=== PATIENT | male | born 1950 | race Caucasian/White ===

== ENCOUNTER 2021-03-22 06:04 | Day surgery (SDC) | payer OTHER, MEDICARE | END 2021-03-22 23:43 | disposition home or self-care (01) | LOC: WOUND 06:04 | DX: L89.893 Pressure ulcer of other site, stage 3 (principal); I73.9 Peripheral vascular disease, unspecified; I51.9 Heart disease, unspecified | CPT/HCPCS: G0463 ==

== ENCOUNTER 2021-04-01 03:28 | Day surgery (SDC) | payer OTHER, MEDICARE | END 2021-04-01 23:30 | disposition home or self-care (01) | LOC: WOUND | DX: S91.101A Unspecified open wound of right great toe without damage to nail, initial encounter (principal); X58.XXXA Exposure to other specified factors, initial encounter; I73.9 Peripheral vascular disease, unspecified | CPT/HCPCS: A9270 ==

== ENCOUNTER 2021-04-08 03:27 | Day surgery (SDC) | payer OTHER, MEDICARE | END 2021-04-08 23:35 | disposition home or self-care (01) | LOC: WOUND 03:27 | DX: L97.512 Non-pressure chronic ulcer of other part of right foot with fat layer exposed (principal); I73.9 Peripheral vascular disease, unspecified; S91.101A Unspecified open wound of right great toe without damage to nail, initial encounter; X58.XXXA Exposure to other specified factors, initial encounter | CPT/HCPCS: A9270; G0463 ==

== ENCOUNTER 2021-04-15 03:15 | Day surgery (SDC) | payer OTHER, MEDICARE | END 2021-04-15 23:27 | disposition home or self-care (01) | LOC: WOUND 03:15 | DX: L97.512 Non-pressure chronic ulcer of other part of right foot with fat layer exposed (principal); I73.9 Peripheral vascular disease, unspecified; S91.101A Unspecified open wound of right great toe without damage to nail, initial encounter; I51.9 Heart disease, unspecified ==

== ENCOUNTER 2021-04-22 02:38 | Day surgery (SDC) | payer OTHER, MEDICARE | END 2021-04-22 23:17 | disposition home or self-care (01) | LOC: WOUND 02:38 | DX: S91.101A Unspecified open wound of right great toe without damage to nail, initial encounter (principal); L97.512 Non-pressure chronic ulcer of other part of right foot with fat layer exposed; I73.9 Peripheral vascular disease, unspecified; X58.XXXA Exposure to other specified factors, initial encounter | CPT/HCPCS: A9270 ==

== ENCOUNTER 2021-04-29 01:45 | Day surgery (SDC) | payer OTHER, MEDICARE | END 2021-04-29 23:30 | disposition home or self-care (01) | LOC: WOUND 01:45 | DX: L97.512 Non-pressure chronic ulcer of other part of right foot with fat layer exposed (principal); S91.101A Unspecified open wound of right great toe without damage to nail, initial encounter; X58.XXXA Exposure to other specified factors, initial encounter; I73.9 Peripheral vascular disease, unspecified | CPT/HCPCS: A9270; G0463 ==

== ENCOUNTER 2021-05-06 03:17 | Day surgery (SDC) | payer OTHER, MEDICARE | END 2021-05-06 23:37 | disposition home or self-care (01) | LOC: WOUND 03:17 | DX: L97.512 Non-pressure chronic ulcer of other part of right foot with fat layer exposed (principal); E11.51 Type 2 diabetes mellitus with diabetic peripheral angiopathy without gangrene; S91.101D Unspecified open wound of right great toe without damage to nail, subsequent encounter | CPT/HCPCS: A9270 ==

== ENCOUNTER 2021-05-13 05:58 | Day surgery (SDC) | payer OTHER, MEDICARE | END 2021-05-13 23:29 | disposition home or self-care (01) | LOC: WOUND 05:58 | DX: L97.512 Non-pressure chronic ulcer of other part of right foot with fat layer exposed (principal); I73.9 Peripheral vascular disease, unspecified | CPT/HCPCS: A9270; G0463 ==

== ENCOUNTER 2021-05-20 02:31 | Day surgery (SDC) | payer OTHER, MEDICARE | END 2021-05-20 22:44 | disposition home or self-care (01) | LOC: WOUND 02:31 | DX: L97.512 Non-pressure chronic ulcer of other part of right foot with fat layer exposed (principal); I73.9 Peripheral vascular disease, unspecified; S91.101D Unspecified open wound of right great toe without damage to nail, subsequent encounter | CPT/HCPCS: A9270 ==

== ENCOUNTER 2021-05-27 01:37 | Day surgery (SDC) | payer OTHER, MEDICARE | END 2021-05-27 23:38 | disposition home or self-care (01) | LOC: WOUND 01:37 | DX: S91.101A Unspecified open wound of right great toe without damage to nail, initial encounter (principal); L97.512 Non-pressure chronic ulcer of other part of right foot with fat layer exposed; I73.9 Peripheral vascular disease, unspecified | CPT/HCPCS: A9270; G0463 ==

== ENCOUNTER 2021-06-03 02:36 | Day surgery (SDC) | payer OTHER, MEDICARE | END 2021-06-03 23:28 | disposition home or self-care (01) | LOC: WOUND 02:36 | DX: S91.101D Unspecified open wound of right great toe without damage to nail, subsequent encounter (principal); L97.512 Non-pressure chronic ulcer of other part of right foot with fat layer exposed; I73.9 Peripheral vascular disease, unspecified; X58.XXXD Exposure to other specified factors, subsequent encounter | CPT/HCPCS: A9270; G0463 ==

== ENCOUNTER 2021-06-17 08:00 | Day surgery (SDC) | payer OTHER, MEDICARE | END 2021-06-17 23:59 | disposition home or self-care (01) | LOC: WOUND 08:00 | DX: S91.101A Unspecified open wound of right great toe without damage to nail, initial encounter (principal); I73.9 Peripheral vascular disease, unspecified | CPT/HCPCS: G0463 ==

== ENCOUNTER 2021-07-01 01:18 | Day surgery (SDC) | payer OTHER, MEDICARE | END 2021-07-01 23:07 | disposition home or self-care (01) | LOC: WOUND 01:18 | DX: L97.512 Non-pressure chronic ulcer of other part of right foot with fat layer exposed (principal); I73.9 Peripheral vascular disease, unspecified; S91.101D Unspecified open wound of right great toe without damage to nail, subsequent encounter; X58.XXXD Exposure to other specified factors, subsequent encounter | CPT/HCPCS: G0463 ==

== ENCOUNTER 2021-07-17 01:48 | Day surgery (SDC) | payer OTHER, MEDICARE | END 2021-07-17 23:59 | disposition home or self-care (01) | LOC: WOUND 01:48 | DX: L97.512 Non-pressure chronic ulcer of other part of right foot with fat layer exposed (principal); I73.9 Peripheral vascular disease, unspecified; S91.101D Unspecified open wound of right great toe without damage to nail, subsequent encounter; X58.XXXD Exposure to other specified factors, subsequent encounter | CPT/HCPCS: G0463 ==

== ENCOUNTER 2021-07-29 03:20 | Day surgery (SDC) | payer OTHER, MEDICARE | END 2021-07-29 23:26 | disposition home or self-care (01) | LOC: WOUND 03:20 | DX: L97.512 Non-pressure chronic ulcer of other part of right foot with fat layer exposed (principal); I73.9 Peripheral vascular disease, unspecified; S91.101D Unspecified open wound of right great toe without damage to nail, subsequent encounter | CPT/HCPCS: G0463 ==

== ENCOUNTER 2021-08-12 01:25 | Day surgery (SDC) | payer OTHER, MEDICARE | END 2021-08-12 23:26 | disposition home or self-care (01) | LOC: WOUND 01:25 | DX: L97.512 Non-pressure chronic ulcer of other part of right foot with fat layer exposed (principal); I73.9 Peripheral vascular disease, unspecified; S91.101D Unspecified open wound of right great toe without damage to nail, subsequent encounter; X58.XXXD Exposure to other specified factors, subsequent encounter | CPT/HCPCS: G0463 ==

== ENCOUNTER 2022-01-28 16:01 | Emergency (ER) | payer OTHER, MEDICARE ==
[~2022-01-28] VITALS: Ht 170.2 cm; Wt 77.1 kg
[2022-01-28 17:54] LABS: Influenza B, PCR NEGATIVE (NEGATIVE); Resp Syncytial Virus, PCR NEGATIVE (NEGATIVE); SARS-Cov-2 (COVID-19) PCR, MMC NEGATIVE (NEGATIVE)
[2022-01-28 18:00] LABS: Influenza A, PCR POSITIVE (NEGATIVE)
[2022-01-28 20:53] LABS: BASOPHILS ABSOLUTE AUTO 0.01 K/mm3 (0.00-0.23); BASOPHILS PERCENT AUTO 0 % (0-2); EOSINOPHILS PERCENT AUTO 0 % (0-6); Hematocrit 33.9 % (37.0-53.0); Hemoglobin 11.6 g/dL (13.5-17.5); IMMATURE GRAN ABSOLUTE AUTO 0.04 K/mm3 (0.00-0.10); IMMATURE GRAN PERCENT AUTO 1 % (0-1); LYMPHOCYTES PERCENT AUTO 8 % (21-46); MONOCYTES ABSOLUTE AUTO 0.98 K/mm3 (0.16-1.47); MONOCYTES PERCENT AUTO 12 % (4-13); Mean Corpuscular HGB 28.9 pg (26.0-34.0); Mean Corpuscular HGB Conc 34.2 g/dL (31.5-36.5); Mean Corpuscular Volume 85 fL (80-100); NEUTROPHILS ABSOLUTE AUTO 6.67 K/mm3 (1.96-9.15); NEUTROPHILS PERCENT AUTO 79 % (41-73); Platelet Count 108 K/mm3 (150-400); RDW Coefficient Variation 12.1 % (11.7-14.2); RDW Standard Deviation 37.3 fL (35.1-46.3); Red Blood Cell Count 4.01 M/mm3 (4.30-5.90)
[2022-01-28 21:09] LABS: Albumin, Blood 2.8 g/dL (3.4-5.0); Albumin/Globulin Ratio 0.7 (0.8-1.8); Bilirubin, Total 1.6 mg/dL (0.1-1.0); Bun/Creatinine Ratio 20.9 (12.0-20.0); Creatinine, Blood 1.15 mg/dL (0.60-1.20); Globulin, Blood 4.3 g/dL (2.2-4.0); Potassium, Blood 4.3 mmol/L (3.5-5.5); Total Protein, Blood 7.1 g/dL (6.4-8.2)
[2022-01-28] MEDS ORDERED: OSEL75CA PO (21:44)
[2022-01-28] MEDS ORDERED: LEVO750 PO (21:44)
[2022-01-28] MEDS ORDERED: FURO20 PO (21:44)
== END 2022-01-28 22:57 | disposition home or self-care (01) ==
LOC: ER 16:01
PROVIDERS: Physician Assistant; Student in an Organized Health Care Education/Training Program
DX: J10.1 Influenza due to other identified influenza virus with other respiratory manifestations (principal); J90 Pleural effusion, not elsewhere classified; Z20.822 Contact with and (suspected) exposure to COVID-19
CPT/HCPCS: 0241U; 71046; 80053; 83880; 85025; A9270; J1940; J1956

== ENCOUNTER 2022-02-25 15:32 | Inpatient (IN) | payer OTHER, MEDICARE ==
[~2022-02-25] VITALS: Ht 167.6 cm; Wt 69.8 kg
[~2022-02-25 15:32] MED LIST: FURO20 PO; LEVO750 PO; OSEL75CA PO
[2022-02-25 16:35] LABS: BASOPHILS ABSOLUTE AUTO 0.01 K/mm3 (0.00-0.23); BASOPHILS PERCENT AUTO 0 % (0-2); EOSINOPHILS ABSOLUTE AUTO 0.06 K/mm3 (0.00-0.68); EOSINOPHILS PERCENT AUTO 2 % (0-6); Hematocrit 40.1 % (37.0-53.0); Hemoglobin 13.3 g/dL (13.5-17.5); IMMATURE GRAN PERCENT AUTO 0 % (0-1); LYMPHOCYTES ABSOLUTE AUTO 0.87 K/mm3 (0.84-5.20); LYMPHOCYTES PERCENT AUTO 22 % (21-46); MONOCYTES ABSOLUTE AUTO 0.52 K/mm3 (0.16-1.47); MONOCYTES PERCENT AUTO 13 % (4-13); Mean Corpuscular HGB 28.5 pg (26.0-34.0); Mean Corpuscular HGB Conc 33.2 g/dL (31.5-36.5); Mean Corpuscular Volume 86 fL (80-100); NEUTROPHILS ABSOLUTE AUTO 2.53 K/mm3 (1.96-9.15); NEUTROPHILS PERCENT AUTO 63 % (41-73); Platelet Count 102 K/mm3 (150-400); RDW Coefficient Variation 13.3 % (11.7-14.2); RDW Standard Deviation 41.1 fL (35.1-46.3); Red Blood Cell Count 4.67 M/mm3 (4.30-5.90); White Blood Cell Count 3.99 K/mm3 (4.00-11.30)
[2022-02-25 17:10] LABS: Albumin, Blood 3.1 g/dL (3.4-5.0); Albumin/Globulin Ratio 0.8 (0.8-1.8); Bun/Creatinine Ratio 15.6 (12.0-20.0); Calcium, Blood 9.1 mg/dL (8.5-10.1); Creatinine, Blood 1.09 mg/dL (0.60-1.20); Globulin, Blood 4.1 g/dL (2.2-4.0); Potassium, Blood 4.1 mmol/L (3.5-5.5); Total Protein, Blood 7.2 g/dL (6.4-8.2)
[2022-02-25 21:24] LABS: Influenza A, PCR NEGATIVE (NEGATIVE); Influenza B, PCR NEGATIVE (NEGATIVE); Resp Syncytial Virus, PCR NEGATIVE (NEGATIVE); SARS-Cov-2 (COVID-19) PCR, MMC NEGATIVE (NEGATIVE)
[2022-02-26 06:45] LABS: BASOPHILS ABSOLUTE AUTO 0.02 K/mm3 (0.00-0.23); BASOPHILS PERCENT AUTO 1 % (0-2); EOSINOPHILS ABSOLUTE AUTO 0.06 K/mm3 (0.00-0.68); EOSINOPHILS PERCENT AUTO 2 % (0-6); Hematocrit 35.9 % (37.0-53.0); Hemoglobin 12.3 g/dL (13.5-17.5); IMMATURE GRAN ABSOLUTE AUTO 0.01 K/mm3 (0.00-0.10); IMMATURE GRAN PERCENT AUTO 0 % (0-1); LYMPHOCYTES ABSOLUTE AUTO 0.78 K/mm3 (0.84-5.20); LYMPHOCYTES PERCENT AUTO 20 % (21-46); MONOCYTES PERCENT AUTO 18 % (4-13); Mean Corpuscular HGB 29.1 pg (26.0-34.0); Mean Corpuscular HGB Conc 34.3 g/dL (31.5-36.5); Mean Corpuscular Volume 85 fL (80-100); Mean Platelet Volume 10.6 fL (9.1-12.4); NEUTROPHILS ABSOLUTE AUTO 2.31 K/mm3 (1.96-9.15); NEUTROPHILS PERCENT AUTO 60 % (41-73); Platelet Count 105 K/mm3 (150-400); RDW Coefficient Variation 13.3 % (11.7-14.2); RDW Standard Deviation 41.1 fL (35.1-46.3); Red Blood Cell Count 4.23 M/mm3 (4.30-5.90); White Blood Cell Count 3.88 K/mm3 (4.00-11.30)
--- NOTE | 2022-02-26 06:46 | NUR ---
A/OX4; CALM, PLEASANT, COOPERATIVE. DECLINED DESK INTERVIEWER SERVICES; THIS RN ENCOURAGED PATIENT AND SPOUSE TO REQUEST DESK INTERVIEWER IF ANY CLARIFICATION IS NEEDED.
[2022-02-26 07:08] LABS: Bun/Creatinine Ratio 13.7 (12.0-20.0); Calcium, Blood 8.8 mg/dL (8.5-10.1); Creatinine, Blood 1.17 mg/dL (0.60-1.20); Potassium, Blood 3.9 mmol/L (3.5-5.5)
--- NOTE | 2022-02-26 17:40 | NUR ---
SHIFT SUMMARY PATIENT DENIES PAIN, NAUSEA, AND SHORTNESS OF BREATH. PATIENT IS IND IN ROOM. PATIENT HAD AT BEDSIDE ALL SHIFT. STRESS TEST ORDERED THIS AFTERNOON, PATIENT NPO. FIRST PART COMPLETED TODAY, 02/26. PATIENT TO BE NPO AT MIDNIGHT AND NO CAFFIENE AT 8PM TO FINISH STRESS TEST TOMORROW, 02/27. PATIENT AWARE AND STATED UNDERSTANDING. PATIENT IV, DIFFICULT FLUSH. CHARGE NURSE INFORMED AFTER CURRENT IV HAD TO BE PLACED VIA ULTRASOUND LAST NIGHT. PATIENT IS EATING AND DRINKING WELL. PATIENT IS VERY PLEASANT AND COOPERATIVE WITH CARE.
--- NOTE | 2022-02-26 22:19 | NUR ---
2146 PT LYING IN BED, REPORTS A LITTLE SOB WHILE SLEEPING, ON RA AT 97%. 2-3+ PITTING EDEMA IN LE'S. TELE NSR SR/ST BBB AT 77. PT'S IV IS POSITIONAL BUT FLUSHES WELL, PLACED NEW DRESSING ON IV AND REPOSITIONED IT SLIGHTLY, APPEARS TO BE LESS POSITIONAL AND STILL FLUSHING WELL. WILL CONT. TO MONITOR. NO OTHER APPARENT SIGNS OF DISTRESS. CALL LIGHT IS IN REACH. IS IN ROOM.
--- NOTE | 2022-02-27 04:06 | NUR ---
0000 PT LYING IN BED, AWAKE, PT REPORTS SLIGHT NAUSEA BUT DOES NOT FEEL LIKE HE NEEDS MEDS FOR IT AT THIS POINT. WILL SPEAK WITH DR DURING THE NEXT CALL TO GET NAUSEA MEDS ORDRED IN CASE HE DOES FEEL LIKE HE NEEDS THEM. NO OTHER APPARENT SIGNS OF DISTRESS. CALL LIGHT IS IN REACH. IS IN ROOM.
--- NOTE | 2022-02-27 04:07 | NUR ---
0200 PT LYING IN BED, EYES CLOSED, APPEARS TO BE RESTING. BREATHING IS EVEN, UNLABORED. NO APPARENT SIGNS OF DISTRESS. CALL LIGHT IS IN REACH. IS IN ROOM.
--- NOTE | 2022-02-27 04:08 | NUR ---
PT IS AAO X 4, REPORTS A LITTLE SOB WHEN SLEEPING. ON RA AT 97%. REPORTED A LITTLE NAUSEA, DID NOT WANT MEDS AT THE TIME BUT THERE IS NOW ZOFRAN ORDERED IF HE DOES NEED IT. TELE NSR WITH BBB AND HX OF PVC'S. 2-3+ EDEMA IN LE'S. TO HAVE 2ND STRESS TEST THIS AM.
--- NOTE | 2022-02-27 05:47 | NUR ---
PT LYING IN BED, EYES CLOSED, APPEARS TO BE RESTING. BREATHING IS EVEN, UNLABORED. NO APPARENT SIGNS OF DISTRESS. CALL LIGHT IS IN REACH. IS IN ROOM. NO OTHER CHANGES THIS SHIFT.
[2022-02-27] MEDS ORDERED: LOSA25 PO (17:02)
[2022-02-27] MEDS ORDERED: METO25 PO (17:02)
[2022-02-27] MEDS ORDERED: CEFD300 PO (17:03)
[2022-02-27] MEDS ORDERED: POTCHL20ER PO (17:03)
[2022-02-27] MEDS ORDERED: FURO40 PO (17:03)
[2022-02-27] MEDS ORDERED: AZIT500 PO (17:03)
--- NOTE | 2022-02-27 17:21 | NUR ---
DISCHARGE: PT D/C WITH VIA ATOMOBILE. AMA FORM SIGNED PER DR. BLEDSOE. PT MADE AWARE OF RISKS AND COMPLICATIONS OF LEAVING EARLY FROM HOSPITAL. PT AND BOTH STATED THEY UNDERSTOOD RISKS INVOLVED. RX MEDICATIONS SENT TO [facility]. IV D/C'D W/O COMPLICATIONS, REDNESS, OR INFLAMMATION. TELE DC'D AND SENT. ALL BELONGINGS SENT WITH PT.
== END 2022-02-27 17:19 | disposition left against medical advice (07) | DRG 871 ==
LOC: ER 15:32 → MEDS 15:33
PROVIDERS: Internal Medicine; Physician Assistant; ADMIT Family Medicine
DX: A41.9 Sepsis, unspecified organism (principal); I21.4 Non-ST elevation (NSTEMI) myocardial infarction; I50.23 Acute on chronic systolic (congestive) heart failure; J18.9 Pneumonia, unspecified organism; N17.9 Acute kidney failure, unspecified; D61.818 Other pancytopenia; R65.20 Severe sepsis without septic shock; Z20.822 Contact with and (suspected) exposure to COVID-19; I11.0 Hypertensive heart disease with heart failure; Z90.49 Acquired absence of other specified parts of digestive tract; Z79.2 Long term (current) use of antibiotics; Z79.899 Other long term (current) drug therapy; Z23 Encounter for immunization
CPT/HCPCS: 0241U; 36415; 71045; 71046; 71260; 78452; 80048; 80053; 83605; 83880; 84145; 84484; 85025; 85379; 87040; 90686; 93005; 93010; 93017; 93306; 93971; 96365; 96366; 96367; 96372; 96374-59; 96375-59; 96376; 99285-25; A9270; A9500; G0008; G0378; J0280; J0456; J0696; J1650; J1940; J2405; J2785; J7050; Q9967

== ENCOUNTER 2022-04-05 14:50 | Emergency (ER) | payer OTHER, MEDICARE ==
[~2022-04-05] VITALS: Ht 170.2 cm; Wt 81.7 kg
[~2022-04-05 14:50] MED LIST changes: +AZIT500 PO; +CEFD300 PO; +FURO40 PO; +LOSA25 PO; +METO25 PO; +POTCHL20ER PO
[2022-04-05] MEDS ORDERED: Bactrim Ds Tab1 EACH PO (15:25)
== END 2022-04-05 15:42 | disposition home or self-care (01) ==
LOC: ER 14:50
DX: L02.212 Cutaneous abscess of back [any part, except buttock and flank] (principal); Z79.899 Other long term (current) drug therapy
CPT/HCPCS: 10061; 99283-25

== ENCOUNTER 2022-04-06 11:36 | Emergency (ER) | payer OTHER, MEDICARE ==
[~2022-04-06] VITALS: Ht 170.2 cm; Wt 72.6 kg
[~2022-04-06 11:36] MED LIST changes: +Bactrim Ds Tab1 EACH PO
== END 2022-04-06 11:45 | disposition home or self-care (01) ==
LOC: ER 11:36
DX: Z48.00 Encounter for change or removal of nonsurgical wound dressing (principal); Z79.899 Other long term (current) drug therapy
CPT/HCPCS: 99282

== ENCOUNTER 2022-04-07 17:32 | Emergency (ER) | payer OTHER, MEDICARE ==
[~2022-04-07] VITALS: Ht 167.6 cm; Wt 63.5 kg
== END 2022-04-07 17:49 | disposition home or self-care (01) ==
LOC: ER 17:32
DX: Z48.01 Encounter for change or removal of surgical wound dressing (principal); Z79.899 Other long term (current) drug therapy
CPT/HCPCS: 99282

== ENCOUNTER 2022-09-16 12:15 | Inpatient (IN) | payer OTHER, MEDICARE ==
[~2022-09-16] VITALS: Ht 170.2 cm; Wt 68.2 kg
[2022-09-16 13:12] LABS: BASOPHILS ABSOLUTE AUTO 0.01 K/mm3 (0.00-0.23); BASOPHILS PERCENT AUTO 0 % (0-2); EOSINOPHILS PERCENT AUTO 0 % (0-6); Hematocrit 42.9 % (37.0-53.0); Hemoglobin 14.6 g/dL (13.5-17.5); IMMATURE GRAN ABSOLUTE AUTO 0.02 K/mm3 (0.00-0.10); IMMATURE GRAN PERCENT AUTO 0 % (0-1); LYMPHOCYTES ABSOLUTE AUTO 0.55 K/mm3 (0.84-5.20); LYMPHOCYTES PERCENT AUTO 6 % (21-46); MONOCYTES ABSOLUTE AUTO 0.48 K/mm3 (0.16-1.47); MONOCYTES PERCENT AUTO 5 % (4-13); Mean Corpuscular HGB 28.6 pg (26.0-34.0); Mean Corpuscular Volume 84 fL (80-100); Mean Platelet Volume 10.3 fL (9.1-12.4); NEUTROPHILS ABSOLUTE AUTO 7.91 K/mm3 (1.96-9.15); NEUTROPHILS PERCENT AUTO 88 % (41-73); Platelet Count 120 K/mm3 (150-400); RDW Standard Deviation 36.5 fL (35.1-46.3); White Blood Cell Count 8.97 K/mm3 (4.00-11.30)
[2022-09-16 13:28] LABS: Albumin, Blood 3.6 g/dL (3.4-5.0); Albumin/Globulin Ratio 0.8 (0.8-1.8); Bilirubin, Total 0.9 mg/dL (0.1-1.0); Bun/Creatinine Ratio 24.6 (12.0-20.0); Calcium, Blood 9.6 mg/dL (8.5-10.1); Creatinine, Blood 1.67 mg/dL (0.60-1.20); Globulin, Blood 4.8 g/dL (2.2-4.0); Magnesium, Blood 2.7 mg/dL (1.6-2.4); Potassium, Blood 4.6 mmol/L (3.5-5.5); Total Protein, Blood 8.4 g/dL (6.4-8.2)
[2022-09-16] MEDS ORDERED: CARVEDILOL6.25 MG PO (15:32)
[2022-09-16] MEDS ORDERED: ENTRESTO 24 MG1 EAC3 PO (15:33)
[2022-09-16] MEDS ORDERED: ASPIRIN REGIMEN81 MG PO (15:34)
[2022-09-16] MEDS ORDERED: NITROGLYCERIN0.4 M3 SL (15:34)
[2022-09-16] MEDS ORDERED: ROSUVASTATIN CA40 MG PO (15:35)
[2022-09-16] MEDS ORDERED: FARXIGA10 MG PO (15:35)
[2022-09-16 20:45] VITALS: BP 143/89
[2022-09-17] VITALS (7 sets, daily range): BP systolic 104–143; BP diastolic 67–87
[2022-09-17 04:29] LABS: BASOPHILS ABSOLUTE AUTO 0.02 K/mm3 (0.00-0.23); BASOPHILS PERCENT AUTO 0 % (0-2); EOSINOPHILS PERCENT AUTO 0 % (0-6); Hematocrit 38.1 % (37.0-53.0); Hemoglobin 13.4 g/dL (13.5-17.5); IMMATURE GRAN PERCENT AUTO 1 % (0-1); LYMPHOCYTES ABSOLUTE AUTO 0.92 K/mm3 (0.84-5.20); LYMPHOCYTES PERCENT AUTO 9 % (21-46); MONOCYTES ABSOLUTE AUTO 1.19 K/mm3 (0.16-1.47); MONOCYTES PERCENT AUTO 12 % (4-13); Mean Corpuscular HGB 29.3 pg (26.0-34.0); Mean Corpuscular HGB Conc 35.2 g/dL (31.5-36.5); Mean Corpuscular Volume 83 fL (80-100); Mean Platelet Volume 10.5 fL (9.1-12.4); NEUTROPHILS PERCENT AUTO 77 % (41-73); Platelet Count 115 K/mm3 (150-400); RDW Coefficient Variation 12.2 % (11.7-14.2); RDW Standard Deviation 37.2 fL (35.1-46.3); Red Blood Cell Count 4.58 M/mm3 (4.30-5.90); White Blood Cell Count 9.83 K/mm3 (4.00-11.30)
--- NOTE | 2022-09-17 04:29 | NUR ---
PT TO CT FOR REPEATING IMAGING VIA RTALI
--- NOTE | 2022-09-17 04:53 | NUR ---
RETURNED FROM CT
[2022-09-17 04:57] LABS: Bun/Creatinine Ratio 26.3 (12.0-20.0); Calcium, Blood 8.8 mg/dL (8.5-10.1); Creatinine, Blood 1.71 mg/dL (0.60-1.20); Potassium, Blood 3.8 mmol/L (3.5-5.5)
--- NOTE | 2022-09-17 05:28 | NUR ---
SHIFT SUMMARY A/OX3, SOMNOLENT T/O THE SHIFT. AT BEDSIDE. SPO2 >92% ON RA. TELE SR 70-80S, DENIES CHEST PAIN/PRESSURE. Q2 NEURO CHECKS. ABLE TO MOVE ALL EXTREMITIES, GENEARLIZED WEAKNESS. SLOW TO RESPOND. PT RETAINING URINE WITH BLADDER SCAN OF >999 PT REQUESTING TO USE BSC, UP 2P ASSIST WITH GB STAND/PIVOT, ONLY ABLE URINATE 100ML. STRAIGHT CATH WITH OUTPUT OF 850ML. REPEAT CT COMPLETED APPROX 0430. NPO AT THIS TIME. VSS, NO ACUTE CHANGES AT THIS TIME. BED IN LOWEST POSITION WITH CALL LIGHT IN REACH. WILL CONTINUE TO MONITOR AND REPORT TO ONCOMING RN. PT & FAMILY EDUCATED RE: IGNITION SOURCES & RISK OF INJURY WHILE OXYGEN IS IN USE. PT DENIES SMOKING AND PT & FAMILY VERBALIZE UNDERSTANDING.
--- NOTE | 2022-09-17 07:12 | NUR ---
ASSUMED CARE: PT RESTING QUIETLY IN BED, ON RA. TELE SHOWS NSR WITH BBB IN 70S. AT BEDSIDE. NO ACUTE NEEDS OR CONCERNS AT THIS TIME.
--- NOTE | 2022-09-17 08:20 | NUR ---
DR FREY CAME TO BEDSIDE TO SEE PT. AWARE THAT PT HAD DIFFICULTY SWALLOWING MEDS PER NIGHT RN. DR INSTRUCTS TO KEEP PT STRICT NPO UNTIL SPEECH HAS A CHANCE TO EVALUATE. INFORMED DR THAT OUTPT CARDIOLOGY OFFICE IS CLOSED UNTIL 0830 TO OBTAIN RECORDS. NEW EKG COMPLETED AND SHOWN TO DR EDUARDO WHO STATES SHE WILL CONTACT DR RODRIGUEZ. PT'S AT BEDSIDE. NO ACUTE NEEDS AT THIS TIME.
--- NOTE | 2022-09-17 09:31 | NUR ---
BRIDGE MAINTENANCE WORKER AT BEDSIDE. CARDIOLOGY RECORDS HAVE BEEN FAXED AND IN CHART.
--- NOTE | 2022-09-17 10:14 | NUR ---
SPEECH THERAPY AT BEDSIDE AT THIS TIME.
--- NOTE | 2022-09-17 10:28 | NUR ---
AM MEDICATIONS ADMINSTERED WITH SPEECH THERAPY ASSISTANCE.
--- NOTE | 2022-09-17 17:03 | NUR ---
THIRD STRAIGHT CATH COMPLETED. CALL TO DR FREY WHO ORDERED FLOMAX TO START THIS EVENING AND TO PLACE [place] CATH. STATES THAT WE WILL ATTEMPT TO REMOVE CATHETER IN A DAY OR TWO AFTER FLOMAX IS ABLE TO TAKE EFFECT. IGNITION RISK: NO EVIDENCE OF LIGHTERS/ MATCHES/CIGARRETTES AT BEDSIDE THROUGHOUT SHIFT
--- NOTE | 2022-09-17 17:30 | NUR ---
SHIFT SUMMARY: PT RESTING QUIETLY AT THIS TIME. WORKED WITH PT/OT/ST THIS SHIFT. [place] CATH PLACED FOR URINARY RETENTION. DR MABEL BAIRD THIS EVENING TO ADDRESS THIS. TROPONIN CONTINUES TO BE ELEVATED. DR RODRIGUEZ CONSULTED BUT HAS NOT SEEN PT YET. AWAITING CARDIOLOGY RECOMMENDATIONS. AT BEDSIDE T/O DAY. NO FURTHER NEEDS OR CONCERNS AT THIS TIME.
[2022-09-18] VITALS (7 sets, daily range): BP systolic 101–132; BP diastolic 63–83
--- NOTE | 2022-09-18 05:29 | NUR ---
SHIFT SUMMARY A/OX3, SLEPT T/O THE SHIFT. AT BEDSIDE. SPO2 >92% ON RA. TELE SR 70-80S, DENIES CHEST PAIN/PRESSURE. Q2 NEURO CHECKS. ABLE TO MOVE ALL EXTREMITIES, GENEARLIZED WEAKNESS. SLOW TO RESPOND. [place] PATENT AND DRAINING TO GRAVITY. TOLERATING SMALL AMOUNTS OF PO INTAKE. VSS, NO ACUTE CHANGES AT THIS TIME. BED IN LOWEST POSITION WITH CALL LIGHT IN REACH. WILL CONTINUE TO MONITOR AND REPORT TO ONCOMING RN. PT & FAMILY EDUCATED RE: IGNITION SOURCES & RISK OF INJURY WHILE OXYGEN IS IN USE. PT DENIES SMOKING AND PT & FAMILY VERBALIZE UNDERSTANDING.
--- NOTE | 2022-09-18 08:11 | NUR ---
IGNITION ASSESSMENT PT AND PT ASSESSED FOR IGNITION RISK DEVICES, NONE REPORTED. PT AND PT REMINDED THAT [facility] IS A SMOKE FREE FACILITY AND THAT ANY VISITORS THAT SMOKE NEED TO LEAVE IGNITION RISK DEVICES IN THEIR CAR. PT AND PT AGREED.
--- NOTE | 2022-09-18 13:29 | NUR ---
Pt resting in bed with his eyes closed upon arrival. Pt wakes to gentle verbal stimuli. Pt's spouse is at bedside. Pt appears weak and lethargic. Pt A&OX2/3. 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 Pt unable to state name of the hospital. Pt reports originally from [facility] and spouse reports originally from the [facility]. Pt struggles with engaging in conversation. Gentle education on advanced care planning and the importance of routine conversations with specialist and PCP. Spouse reports Pt does not see a PCP and see a cardiology technologist in [place] approximately every 3 months. Discussed the importance of establishing with a PCP and continued advanced care planning. Discussed the importance of planning for the future as disease process takes its coarse. Pt and spouse appear to struggle with understanding conversation. Discussed code status wishes. Educated on life sustaining treatments including risks and implications to CPR. Pt and spouse report wishes are for Full Code. Spouse discusses having a relative who was a child. She states the child almost drowned and a sand slinger performed CPR and the child lived. Spouse reports she and Pt are people who live one day at a time and hold onto hope and try to avoid as much negativity as possible. Offered supportive visit and validated concerns. Ended visit to allow Pt to rest. Spoke with test tube maker Gabe, Primary RN Pollo, Dr Ferguson and discussed case. Palliative Care will remain available
--- NOTE | 2022-09-18 17:28 | NUR ---
SHIFT SUMMARY PT A/OX3-4. PT ABLE TO ANSWER ORIENTATION QUESTIONS, HAS SOME DIFFICULTIES FOLLOWING INSTRUCTIONS, SEE NEURO CHECKS. PT ABLE TO EXPRESS NEEDS. PT SLEPT FOR GOOD PORTION OF SHIFT, WAKING BRIEFLY FOR NEURO CHECKS, VITALS AND MEALS. PT VSS THROUGHOUT SHIFT WITH O2 SATS IN THE 90'S ON RA. NO REPORT OF CHEST PAIN/PRESSURE THROUGHOUT SHIFT. NO REPORT OF SOB/DYSPNEA THROUGHOUT SHIFT. PT ABLE TO TURN SELF IN BED, NEEDS SOME REMINDERS AT TIMES. [place] IN PLACE DRAINING TO GRAVITY. PT STARTED ON ASPIRIN 81 MG PER MD ORDER, REPEAT HEAD CT SCHEDULED FOR TOMORROW AFTERNOON. PT SEEN BY PALLIATIVE CARE, SEE PALLIATIVE NOTES.
--- NOTE | 2022-09-18 22:04 | NUR ---
SAFETY & EDUCATION NOTE PT & FAMILY EDUCATED RE: IGNITION SOURCES & RISK OF INJURY WHILE OXYGEN IS IN USE. PT DENIES SMOKING AND PT & FAMILY VERBALIZE UNDERSTANDING.
[2022-09-19 03:29] VITALS: BP 116/76
[2022-09-19 04:10] LABS: BASOPHILS ABSOLUTE AUTO 0.01 K/mm3 (0.00-0.23); BASOPHILS PERCENT AUTO 0 % (0-2); EOSINOPHILS ABSOLUTE AUTO 0.06 K/mm3 (0.00-0.68); EOSINOPHILS PERCENT AUTO 1 % (0-6); Hematocrit 37.6 % (37.0-53.0); Hemoglobin 13.1 g/dL (13.5-17.5); IMMATURE GRAN ABSOLUTE AUTO 0.01 K/mm3 (0.00-0.10); IMMATURE GRAN PERCENT AUTO 0 % (0-1); LYMPHOCYTES PERCENT AUTO 16 % (21-46); MONOCYTES ABSOLUTE AUTO 0.81 K/mm3 (0.16-1.47); MONOCYTES PERCENT AUTO 14 % (4-13); Mean Corpuscular HGB Conc 34.8 g/dL (31.5-36.5); Mean Corpuscular Volume 83 fL (80-100); Mean Platelet Volume 10.5 fL (9.1-12.4); NEUTROPHILS ABSOLUTE AUTO 3.92 K/mm3 (1.96-9.15); NEUTROPHILS PERCENT AUTO 69 % (41-73); Platelet Count 89 K/mm3 (150-400); RDW Coefficient Variation 11.9 % (11.7-14.2); Red Blood Cell Count 4.52 M/mm3 (4.30-5.90); White Blood Cell Count 5.71 K/mm3 (4.00-11.30)
[2022-09-19 04:23] LABS: Albumin, Blood 2.9 g/dL (3.4-5.0); Anion Gap 6 mmol/L (6-16); Blood Urea Nitrogen 39 mg/dL (8-24); Bun/Creatinine Ratio 29.1 (12.0-20.0); CO2, Blood 27 mmol/L (21-32); Calcium, Blood 8.6 mg/dL (8.5-10.1); Chloride, Blood 104 mmol/L (98-108); Creatinine, Blood 1.34 mg/dL (0.60-1.20); Glomerular Filtration Rate 57 (60-); Glucose, Blood 164 mg/dL (70-99); Phosphorus, Blood 2.6 mg/dL (2.5-4.9); Potassium, Blood 3.5 mmol/L (3.5-5.5); Sodium, Blood 137 mmol/L (136-145)
--- NOTE | 2022-09-19 05:37 | NUR ---
SHIFT SUMMARY SEE PREVIOUS NOTE. PT A&Ox4, IS SLOW TO RESPOND BUT ABKLE TO COMMUNICATE NEEDS APPROPRIATELY. ASSESSED NEURO Q4. PT IS SLOW TO FOLLOW COMMANDS BUT WAS ABLE TO FOLLOW THEM APPROPRIATELY. BALING PRESS OPERATOR STRENGTHS ARE IMPROVING, PT ABLE TO MOVE ALL EXTREMITIES MEANINGFULLY AND APPROPRIATELY. BP STABLE, SINUS w/BBB 70's, DENIES CP/PRESSURE. SpO2> 92% RA, DENIES SOB. REMIANED AT BEDSIDE. [place] CATHETER IN PLACE, PATENT AND DRAINING TO GRAVITY. NO BM THIS SHIFT. NO OTHER EVENTS, WILL REPORT TO ONCOMING RN.
[2022-09-19 07:59] VITALS: BP 123/72
[2022-09-19 12:30] VITALS: BP 103/62
--- NOTE | 2022-09-19 14:28 | NUR ---
PT LEFT FOR CT AT 1410 VIA HOSPITAL BED AND ARRIVED BACK TO ROOM AT 1425.
[2022-09-19 16:20] VITALS: BP 111/70
--- NOTE | 2022-09-19 18:41 | NUR ---
SHIFT SUMMARY PT A/OX3-4 AND COOPERATIVE OF CARE. PT ABLE TO ANSWER MANY ORIENTATION QUESTIONS AND HAS BEEN FOLLOWING INSTRUCTIONS BETTER TODAY COMPARE TO YESTERDAY. PT STILL REQUIRING MANY CUES, BUT LESS THAN YESTERDAY. PT VSS THROUGHOUT SHIFT WITH 02 SATS IN THE 90'S ON RA. PT REPORTED THAT HIS HEADACHE IS "BETTER TODAY" WHEN COMPARED TO YESTERDAY. NO REPORT OF CHEST PAIN/PRESSURE THROUGHOUT SHIFT. NO REPORT OF SOB/DYSPNE THROUGHOUT SHIFT. [place] REMAINS IN PACE DRAINING TO GRAVITY, YELLOW URINE. PT HAD REPEAT CT DONE TODAY, SEE IMAGING.PT HELPED PT WITH TURNING IN BED, PT REMINDED TO CONTINUE TO SHIFT HIS HIPS. PT SEEN BY THERAPIES TODAY, SEE THERAPIST NOTES. Q4 NEURO CHESCKS.
[2022-09-19 19:35] VITALS: BP 140/82
[2022-09-19 23:54] VITALS: BP 114/73
[2022-09-20 03:15] VITALS: BP 125/72
--- NOTE | 2022-09-20 05:39 | NUR ---
SHIFT SUMMARY SEE PREVIOUS NOTE. PT A&Ox4, IS SLOW TO RESPOND BUT ABKLE TO COMMUNICATE NEEDS APPROPRIATELY. ASSESSED NEURO Q4. PT IS SLOW TO FOLLOW COMMANDS BUT WAS ABLE TO FOLLOW THEM APPROPRIATELY. SHAMPOO ASSISTANT STRENGTHS ARE IMPROVING, PT ABLE TO MOVE ALL EXTREMITIES MEANINGFULLY AND APPROPRIATELY. BP STABLE, SINUS w/BBB 70's, DENIES CP/PRESSURE. SpO2> 92% RA, DENIES SOB. REMIANED AT BEDSIDE. [place] CATHETER IN PLACE, PATENT AND DRAINING TO GRAVITY. NO BM THIS SHIFT. NO OTHER EVENTS, WILL REPORT TO ONCOMING RN.
[2022-09-20 09:20] VITALS: BP 128/76
[2022-09-20 11:50] VITALS: BP 116/71
--- NOTE | 2022-09-20 13:12 | NUR ---
ASSUMED CARE OF PT AT 0700 THIS AM. PT EVALUATED BY ST THIS AM, NO CHANGES TO SWALLOW PRECAUTIONS. PT HAD TROUBLE WITH BREAKFAST, PT'S WAS FEEDING HIM AND HE BEGAN TO COUGH. THE COUGHING THEN CAUSED HIM TO HAVE 1 EPISODE OF EMESIS. THIS RN AT BEDSIDE TO EVALUATE, NO CHANGE IN NEURO STATUS NOTED, VS, PT DENIES PAIN OR OTHER COMPLAINTS AT THIS TIME. PT ABLE TO TAKE PO MEDICATIONS 1-2 PILLS AT A TIME WITH WATER WITHOUT COUGHING OR DIFFICULTY NOTED. SHORTLY AFTER RN LEFT ROOM, PT'S REPORTED A SECOND EPISODE OF EMESIS RESULTING FROM COUGHING AFTER PT DRANK WATER. DR TENORIO NOTIFIED OF THESE EVENTS. THIS RN SUPERVISED PT'S LUNCH SET UP, RE-EDUCATED ON SAFE SWALLOWING STRATEGIES INCLUDING SMALL BITES AND SLOW FEEDING. PT IS OOB TO CHAIR FOR LUNCH, SITTING UP 90 DEGREES. NO SWALLOWING DIFFICULITES NOTED DURRING LUNCH MEAL. PT TRANSFERRED BACK TO BED, 1P ASSIST WITH PT AFTER LUNCH, PT TOLERATED WELL. IGNITION/FIRE SAFETY REVIEWED WITH PT AND , THEY DENY SOURCES OF IGNITION AND VERBALIZE UNDERSTANDING OF FIRE PRECAUTIONS. DNR BAND PLACED AFTER DR TENORIO DISCUSSED CODE STATUS WITH PT AND . PT IS ABLE TO USE CALL LIGHT FOR NEEDS, CALL LIGHT IN REACH, WILL CONTINUE TO MONITOR.
--- NOTE | 2022-09-20 18:43 | NUR ---
NO ACUTE CHANGES SINCE LAST NOTE. PT HAS BEEN RESTING SINCE PHYSICAL THERAPY THIS AFTERNOON. NO FURTHER COUGHING EPISODES. REMAINS AT BEDSIDE AND USES CALL LIGHT FOR NEEDS. WILL CONTINUE TO MONITOR AND GIVE REPORT TO NOC SHIFT RN.
[2022-09-20 20:51] VITALS: BP 101/75
[2022-09-21 00:10] VITALS: BP 133/89
[2022-09-21 03:41] VITALS: BP 135/81
[2022-09-21 08:38] VITALS: BP 112/73
--- NOTE | 2022-09-21 10:32 | NUR ---
ASSUMED CARE OF PT AT 0700 THIS AM. NO NEUOLOGICAL CHANGES NOTED ON ASSESSMENT. PT'S REMAINS AT BEDSIDE. SEE DOCUMENTED VS AND ASSESSMENT. IGNITION SAFETY EDUCATION COMPLETED, PT/ STATE THEY DO NOT HAVE ANY LIGHTERS OR OTHER SOURCES OF IGNITION IN THE ROOM. THEY VERBALIZE UNDERSTANDING. PT VOMITED AFTER TAKING PO MEDICATIONS THIS AM. PT DID NOT COUGH OR SHOW SIGNS OF RESPIRATORY DISTRESS PRIOR TO EPISODE OF VOMITING. NEUROLOGICAL STATUS REMAINS UNCHANGED. PT/ ABLE TO USE CALL LIGHT FOR NEEDS, CALL LIGHT IN REACH, WILL CONTINUE TO MONITOR.
[2022-09-21 14:02] VITALS: BP 135/80
--- NOTE | 2022-09-21 18:13 | NUR ---
NO ACUTE CHANGES SINCE LAST NOTE. PT OOB TO CHAIR THIS AFTERNOON, 1P ASSIST WITH GAIT BELT. PT REQUIRES LOTS OF VERBAL CUES, TENDS TO LEAN HEAVILY TO R SIDE. PT HAD ANOTHER EPISODE OF N/V AFTER TRANSFERRING BACK TO BED. NO CHANGES TO NEUROLOGICAL STATUS, SEE DOCUMENTED VS AND ASSESSMENT. PT'S HAS GONE HOME THIS AFTERNOON, PT IS ABLE TO FEED HIMSELF AND ABLE TO USE CALL LIGHT FOR NEEDS. REINFORCED SWALLOWING PRECAUTIONS WITH PT, HE VERBALIZES UNDERSTANDING. CALL LIGHT IN REACH, WILL CONTINUE TO MONITOR AND GIVE REPORT TO NOC SHIFT RN.
[2022-09-21 20:10] VITALS: BP 138/83
[2022-09-21 23:36] VITALS: BP 110/65
[2022-09-22 03:20] VITALS: BP 133/83
[2022-09-22 04:31] LABS: Hematocrit 38.8 % (37.0-53.0); Hemoglobin 13.6 g/dL (13.5-17.5); Mean Corpuscular HGB 28.8 pg (26.0-34.0); Mean Corpuscular HGB Conc 35.1 g/dL (31.5-36.5); Mean Corpuscular Volume 82 fL (80-100); Mean Platelet Volume 10.3 fL (9.1-12.4); Platelet Count 90 K/mm3 (150-400); RDW Coefficient Variation 11.9 % (11.7-14.2); RDW Standard Deviation 35.6 fL (35.1-46.3); Red Blood Cell Count 4.73 M/mm3 (4.30-5.90); White Blood Cell Count 5.24 K/mm3 (4.00-11.30)
[2022-09-22 04:49] LABS: Anion Gap 7 mmol/L (6-16); Blood Urea Nitrogen 34 mg/dL (8-24); Bun/Creatinine Ratio 29.6 (12.0-20.0); CHOL/HDL RATIO 2.8; CO2, Blood 25 mmol/L (21-32); Calcium, Blood 9.2 mg/dL (8.5-10.1); Chloride, Blood 105 mmol/L (98-108); Cholesterol 104 mg/dL (50-200); Creatinine, Blood 1.15 mg/dL (0.60-1.20); Glomerular Filtration Rate 68 (60-); Glucose, Blood 153 mg/dL (70-99); HDL Cholesterol 37 mg/dL (>39); LDL/HDL RATIO 1.3; Low Density Lipoprotein Chol 47 mg/dL (0-110); Potassium, Blood 3.8 mmol/L (3.5-5.5); Sodium, Blood 137 mmol/L (136-145); Triglycerides 101 mg/dL (30-160); Very Low Density Lipoprot Chol 20 mg/dL (6-32)
--- NOTE | 2022-09-22 04:49 | NUR ---
SHIFT SUMMARY A/Ox3-4 AND COOPERATIVE WITH CARE. CALL APPROPRIATELY AND ABLE TO MAKE HIS NEEDS KNOWN. Q4HR NEURO CHECKS PERFORMED WITH NO CHANGES NOTED T/O THE SHIFT. EYES OPEN SPONTANEOUSLY, PUPILS EQUAL AND REACTIVE TO LIGHT, NO GAZE NOTED. DENIES ANY TINGLING OR SENSATION LOSS ANYWHERE. LEFT SIDED WEAKNESS STILL NOTED IN BOTH UPPER AND LOWER EXTREMITIES. NO SIGNS OF ANY FACIAL DROOP OR FLACCIDITY. ABLE TO RESPOND TO VERBAL, TACTILE, AND PAINFUL STIMULI. CARDIAC, REMAINS IN SR WITH INTERMITTENT PVC S NOTED IN TELE. DENIES ANY CP, PRESSURE, OR HEADACHE T/O THE NIGHT. SBP HAS BEEN STABLE RANGING 110-130 S WITH A MAP REMAINING >65. RESPIRATORY, MAINTAINS SPO2 >92% ON RA. DENIES ANY SOB OR DYSPNEA T/O THE NIGHT. GI/, PT REMAINS UNSTEADY ON HIS FEET AND IS A 2A TO THE BSC. NO BM T/O THE NIGHT. [place] CATH REMAINS PATENT AND DRAINING YELLOW/IVAN URINE TO GRAVITY. PT S SPOUSE REMAINED IN THE ROOM T/O THE NIGHT AND ASSISTS STAFF WITH CARE OF PT. ASSESSED PT FOR RISKS OF ANY IGNITION SOURCES WELL BEHAVIORS FOR INCREASED RISKS OF FIRE DANGER. PT EDUCATED ON COMMON SOURCES OF IGNITION WELL NEED TO KEEP A SAFE ENVIRONMENT. NO NEW ORDERS AT THIS TIME, WILL REPORT TO ONCOMING RN. BLANE ALBERT OF THIS NOTE.
--- NOTE | 2022-09-22 08:00 | NUR ---
Recieved report from Anjum HAILE. His spouse at bedside and is a great support he wants her at bedside. He is on RA and sats >90%. He shows no facial deficits and weakness to left distal extremities. He is up in chair with PT and was feeling nauseated after small amount of breakfast. He has 14 Fr vallejo draining to gravity and goal would be to remove. plan is to go to [facility] today if insurance appproves. ST is comming to assess. He is a one assist when up to chair.
[2022-09-22 09:02] VITALS: BP 132/78
[2022-09-22 09:03] VITALS: BP 132/78
--- NOTE | 2022-09-22 11:30 | NUR ---
Patient remains up in recliner and has been resting off and on. cares for most of his needs. PT, OT, ST have all been in to work with him today. He is moving all extremities and favoring left weaker side. Poor apetite after nausea earlier. Plan to pull vallejo shortly.
[2022-09-22 13:11] VITALS: BP 113/66
--- NOTE | 2022-09-22 15:35 | NUR ---
Assisted patient back to bed about an hour ago and boosted up in bed and placed warm covers over patient and spouse stated that he wanted to nap. Charge nurse gave med floor room number and PCT got belongings together on cart and took to room and came and got patient to go up stairs. Patient denied any current needs. Patient went up on tele.
[2022-09-22 15:44] VITALS: BP 145/78
--- NOTE | 2022-09-22 15:56 | NUR ---
TRANSFER NOTE PT ARRIVED TO UNIT AT 1510. PRESENT AND NOTED TO TAKE CARE OF MOST OF PT'S NEEDS. PT DENIED ANY PAIN, CP, OR SOB AT THIS TIME. LBM ON 09/15/22. PT WAS GIVEN MIRALAX TODAY. NO NAUSEA SINCE THIS AM. NEURO CHECK COMPLETED DURING ASSESSMENT, NO CHANGES PER REPORT. SKIN CHECK COMPLETED WITH LAZARA HAWTHORNE. BLANCHABLE REDNESS NOTED TO BILATERAL BUTTOCKS. RADIAL DRILL OPERATOR FOR PLASTIC REPORTS PLAN FOR PT TO BE PICKED UP AT 1100 TOMORROW FOR DC TO [facility]. COVID TEST WILL BE ORDERED FOR TOMORROW. PT CURRENTLY RESTING COMFORTABLY. WATER AND CALL LIGHT WITHIN REACH.
--- NOTE | 2022-09-22 18:18 | NUR ---
SHIFT SUMMARY PT ADMITTED THIS SHIFT AND ORIENTED TO ROOM. CALL LIGHT IN REACH. HEPARIN GTT STARTED AND VERIFIED WITH LAZARA CABRERA. PT EDUCATED ON THIS. PT EDUCATED ON THE SMOKE FREE FACILITY AND ROOM IS FREE OF AN IGNITION SOURCE. VS REVIEWED. PT DENIES OTHER NEEDS AT THIS TIME. FREE OF CP SO FAR THIS SHIFT.
[2022-09-22 20:14] VITALS: BP 133/75
[2022-09-23 04:18] VITALS: BP 132/80
--- NOTE | 2022-09-23 04:32 | NUR ---
SHIFT SUMMARY PT IS ALERT AND ORIENTED X4. ABLE TO FOLLOW COMMANDS. INDWELLING CATHETER REMOVED 1400 09/22. NO URINE OUTPUT AT 0000. BLADDER SCAN AND INTERMITTENT CATHETER ORDERED. NO ACUTE CHANGES OVERNIGHT. REMAINS AT PT BEDSIDE
--- NOTE | 2022-09-23 06:27 | NUR ---
PT BLADDER SCANNED 454ML. PER DR. LEYVA STRAIGHT CATH AND RESCAN IN 6 HOURS
[2022-09-23 07:45] VITALS: BP 119/72
[2022-09-23 09:16] LABS: Platelet Function Col/Epi 112 sec (75-165)
[2022-09-23 10:37] LABS: SARS-Cov-2 (COVID-19) PCR, MMC NEGATIVE (NEGATIVE)
[2022-09-23 11:19] LABS: Source, Urine Foley catheter
[2022-09-23 11:24] LABS: Appearance, Urine Clear (Clear); Bilirubin, Urine Neg (Neg); Blood, Urine 4+ (Neg); Color, Urine Yellow (P-Yellow); Glucose Qualitative, Urine Neg (Neg); Ketones, Urine Neg (Neg); Leukocyte Esterase, Urine Neg (Neg); Nitrite, Urine Neg (Neg); Protein, Urine 2+ (Neg); Specific Gravity, Urine 1.015 (1.003-1.022); Urobilinogen, Urine NORM (Normal)
--- NOTE | 2022-09-23 11:25 | NUR ---
PT WAS TRANSFERED TO [facility] AT 1100 VIA WHEEL CHAIR. PT WAS A TWO PERSON STAND PIVOT TO WHEELCHAIR AND DID VERY WELL. NO DISTRESS NOTED PT STILL HAS L SIDED WEAKNESS. REPORT CALLED TO [facility] PRIOR TO DISCHARGE. PACKET WAS SENT WITH PT AND HELPED MOVE PERSONAL BELONNGS.
[2022-09-23 11:35] LABS: Mucus Light (0-Heavy)
[2022-09-23 11:36] LABS: Bacteria Few /hpf; Squamous Epithelial Cells Not Seen /hpf (Few); Transitional Epithelial Cells Few /hpf (0-Rare)
--- NOTE | 2022-09-23 11:43 | NUR ---
PT AND WIFED WERE EDUCATED DURING HOURLY ROUNDING ON INGITION ITEMS AND THE HAZARDS OF HAVING THEM AROUND WITH ROOM WITH O2. NO O2 IN USE AND THEY VERBALIZED UNDERSTANDING.
[2022-09-23] MEDS ORDERED: MIRALAX17 GM PO (13:11)
[2022-09-23] MEDS ORDERED: ONDA4ODT MM (13:12)
[2022-09-23] MEDS ORDERED: TAMS.4ER PO (13:12)
== END 2022-09-23 10:56 | DRG 64 ==
LOC: ER 12:15 → PCU 19:49 → MEDS 09-22 15:30 → ENPENDDIS 09-23 10:15 → MEDS 09-23 10:56
PROVIDERS: Internal Medicine; Physician Assistant; ADMIT Internal Medicine
PROC: 0T9B70Z Drainage of Bladder with Drainage Device, Via Natural or Artificial Opening (ICD-10-PCS; principal; 2022-09-21)
DX: I63.89 Other cerebral infarction (principal); I21.4 Non-ST elevation (NSTEMI) myocardial infarction; I50.23 Acute on chronic systolic (congestive) heart failure; I61.2 Nontraumatic intracerebral hemorrhage in hemisphere, unspecified; N17.9 Acute kidney failure, unspecified; G81.94 Hemiplegia, unspecified affecting left nondominant side; R27.0 Ataxia, unspecified; Z66 Do not resuscitate; I25.10 Atherosclerotic heart disease of native coronary artery without angina pectoris; Z20.822 Contact with and (suspected) exposure to COVID-19; I11.0 Hypertensive heart disease with heart failure; I25.5 Ischemic cardiomyopathy; D69.6 Thrombocytopenia, unspecified; N40.1 Benign prostatic hyperplasia with lower urinary tract symptoms; I44.7 Left bundle-branch block, unspecified; I95.9 Hypotension, unspecified; W19.XXXA Unspecified fall, initial encounter; R33.8 Other retention of urine; I25.2 Old myocardial infarction; Z90.49 Acquired absence of other specified parts of digestive tract; Z79.82 Long term (current) use of aspirin; Z79.899 Other long term (current) drug therapy; Z87.01 Personal history of pneumonia (recurrent); Z79.2 Long term (current) use of antibiotics
CPT/HCPCS: 36415; 70450; 71045; 80048; 80053; 80061; 80069; 81001; 83735; 83880; 84484; 85025; 85027; 85576; 92526; 92610; 93005; 93010; 93880; 96374; 97110; 97112; 97162; 97166; 97530; 97535; 99285-25; A9270; C8929; J1940; J2405; J7030; Q9957; U0002

== ENCOUNTER → 2023-03-19 | Outpatient (CLI) | payer OTHER, MEDICARE ==
[~2023-03-19] MED LIST changes: +ASPIRIN REGIMEN81 MG PO; +CARVEDILOL6.25 MG PO; +ENTRESTO 24 MG1 EAC3 PO; +FARXIGA10 MG PO; +MIRALAX17 GM PO; +NITROGLYCERIN0.4 M3 SL; +ONDA4ODT MM; +ROSUVASTATIN CA40 MG PO; +TAMS.4ER PO
[2023-03-20 10:22] LABS: Stool Occult Bld Immuno 1 Negative (NEGATIVE)
== END ==
LOC: LAB SHORT 16:56 → LAB 16:56
PROVIDERS: Physician Assistant
DX: Z12.11 Encounter for screening for malignant neoplasm of colon (principal)
CPT/HCPCS: G0328

== ENCOUNTER 2023-04-03 18:27 | Inpatient (IN) | payer OTHER, MEDICARE ==
[~2023-04-03] VITALS: Ht 172.7 cm; Wt 78.3 kg
[2023-04-03 19:03] LABS: BASOPHILS ABSOLUTE AUTO 0.02 K/mm3 (0.00-0.23); BASOPHILS PERCENT AUTO 1 % (0-2); EOSINOPHILS ABSOLUTE AUTO 0.09 K/mm3 (0.00-0.68); EOSINOPHILS PERCENT AUTO 3 % (0-6); Hematocrit 36.8 % (37.0-53.0); IMMATURE GRAN ABSOLUTE AUTO 0.01 K/mm3 (0.00-0.10); IMMATURE GRAN PERCENT AUTO 0 % (0-1); LYMPHOCYTES ABSOLUTE AUTO 0.88 K/mm3 (0.84-5.20); LYMPHOCYTES PERCENT AUTO 27 % (21-46); MONOCYTES ABSOLUTE AUTO 0.41 K/mm3 (0.16-1.47); MONOCYTES PERCENT AUTO 13 % (4-13); Mean Corpuscular HGB Conc 32.6 g/dL (31.5-36.5); Mean Corpuscular Volume 89 fL (80-100); Mean Platelet Volume 11.8 fL (9.1-12.4); NEUTROPHILS ABSOLUTE AUTO 1.82 K/mm3 (1.96-9.15); NEUTROPHILS PERCENT AUTO 56 % (41-73); Platelet Count 80 K/mm3 (150-400); RDW Coefficient Variation 13.2 % (11.7-14.2); RDW Standard Deviation 42.7 fL (35.1-46.3); Red Blood Cell Count 4.14 M/mm3 (4.30-5.90); White Blood Cell Count 3.23 K/mm3 (4.00-11.30)
[2023-04-03 19:20] LABS: Albumin, Blood 3.6 g/dL (3.4-5.0); Albumin/Globulin Ratio 0.9 (0.8-1.8); Bilirubin, Total 0.9 mg/dL (0.1-1.0); Bun/Creatinine Ratio 15.6 (12.0-20.0); Calcium, Blood 9.1 mg/dL (8.5-10.1); Creatinine, Blood 1.67 mg/dL (0.60-1.20); Globulin, Blood 4.1 g/dL (2.2-4.0); Potassium, Blood 5.3 mmol/L (3.5-5.5); Total Protein, Blood 7.7 g/dL (6.4-8.2)
[2023-04-03] MEDS ORDERED: ENTRESTO 24 MG1 EACH PO (20:17)
[2023-04-03] MEDS ORDERED: FURO20 PO (20:19)
[2023-04-03] MEDS ORDERED: POTA10T PO (20:19)
[2023-04-04 01:12] VITALS: BP 120/88
--- NOTE | 2023-04-04 03:55 | NUR ---
SHIFT SUMMARY 72 YR M ADMITTED ON 04/04/23. FULL CODE. PT ARRIVED ON THIS UNIT AT 0100 WITH HIS AT BEDSIDE. NO ACUTE CHANGES THIS SHIFT. PT HAS BEEN RESTING COMFORTABLY WITH NO C/O PAIN OR DISCOMFORT. HE AMBULATES INDEPENDANTLY TO THE BATHROOM W/ AT STAND BY. HE IS A&O X 4 AND IS PLEASANT AND COOPERATIVE WITH CARE. BED IN LOW POSITION AND CALL LIGHT IN REACH.
[2023-04-04 04:56] LABS: BASOPHILS ABSOLUTE AUTO 0.02 K/mm3 (0.00-0.23); BASOPHILS PERCENT AUTO 1 % (0-2); EOSINOPHILS PERCENT AUTO 3 % (0-6); Hematocrit 33.1 % (37.0-53.0); Hemoglobin 10.8 g/dL (13.5-17.5); IMMATURE GRAN ABSOLUTE AUTO 0.01 K/mm3 (0.00-0.10); IMMATURE GRAN PERCENT AUTO 0 % (0-1); LYMPHOCYTES ABSOLUTE AUTO 0.89 K/mm3 (0.84-5.20); LYMPHOCYTES PERCENT AUTO 27 % (21-46); MONOCYTES ABSOLUTE AUTO 0.54 K/mm3 (0.16-1.47); MONOCYTES PERCENT AUTO 16 % (4-13); Mean Corpuscular HGB 28.9 pg (26.0-34.0); Mean Corpuscular HGB Conc 32.6 g/dL (31.5-36.5); Mean Corpuscular Volume 89 fL (80-100); Mean Platelet Volume 11.2 fL (9.1-12.4); NEUTROPHILS ABSOLUTE AUTO 1.73 K/mm3 (1.96-9.15); NEUTROPHILS PERCENT AUTO 53 % (41-73); Platelet Count 82 K/mm3 (150-400); RDW Standard Deviation 42.5 fL (35.1-46.3); Red Blood Cell Count 3.74 M/mm3 (4.30-5.90); White Blood Cell Count 3.29 K/mm3 (4.00-11.30)
[2023-04-04 05:18] LABS: Bun/Creatinine Ratio 16.6 (12.0-20.0); Calcium, Blood 8.8 mg/dL (8.5-10.1); Creatinine, Blood 1.69 mg/dL (0.60-1.20); Potassium, Blood 4.5 mmol/L (3.5-5.5)
[2023-04-04 07:17] VITALS: BP 112/75
[2023-04-04 15:42] VITALS: BP 95/65
[2023-04-04 15:44] VITALS: BP 114/72
--- NOTE | 2023-04-04 16:47 | NUR ---
SHIFT SUMMARY HOME MED VERIFIED BY PHARMACY AND LOCKED IN DRAWER. AMBULATING INDEPENDENTLY TO BATHROOM. ECHO PERFORMED THIS SHIFT, NOT READ OF NOTE. RECEIVING DIURETICS AND TOLERATING WELL. CARES ONGOING.
[2023-04-04 20:08] VITALS: BP 102/67
[2023-04-05] VITALS (7 sets, daily range): BP systolic 83–105; BP diastolic 54–73
--- NOTE | 2023-04-05 04:27 | NUR ---
SHIFT SUMMARY GARY WAS ALERT AND FULLY ORIENTED ON ASSESSMENT. PT INDEPENDENT IN ROOM. PT DENIES SOB, OR C/P/PRESSURE. PT STATES THAT HE IS "FEELING MUCH BETTER" TODAY. REDNESS AND SWELLING STILL TO BLE. NO ACUTE EVENTS TONIGHT, NO CHANGES TO CONDITION. PT RESTING IN ROOM AT THIS TIME WITH AT THE BEDSIDE AND CALL LIGHT IN REACH.
[2023-04-05 05:16] LABS: BASOPHILS ABSOLUTE AUTO 0.02 K/mm3 (0.00-0.23); BASOPHILS PERCENT AUTO 1 % (0-2); EOSINOPHILS PERCENT AUTO 3 % (0-6); Hematocrit 33.9 % (37.0-53.0); Hemoglobin 11.3 g/dL (13.5-17.5); IMMATURE GRAN PERCENT AUTO 0 % (0-1); LYMPHOCYTES ABSOLUTE AUTO 0.81 K/mm3 (0.84-5.20); LYMPHOCYTES PERCENT AUTO 24 % (21-46); MONOCYTES ABSOLUTE AUTO 0.56 K/mm3 (0.16-1.47); MONOCYTES PERCENT AUTO 17 % (4-13); Mean Corpuscular HGB Conc 33.3 g/dL (31.5-36.5); Mean Corpuscular Volume 87 fL (80-100); Mean Platelet Volume 11.8 fL (9.1-12.4); NEUTROPHILS ABSOLUTE AUTO 1.87 K/mm3 (1.96-9.15); NEUTROPHILS PERCENT AUTO 56 % (41-73); Platelet Count 89 K/mm3 (150-400); RDW Coefficient Variation 12.8 % (11.7-14.2); RDW Standard Deviation 40.9 fL (35.1-46.3); Red Blood Cell Count 3.89 M/mm3 (4.30-5.90); White Blood Cell Count 3.36 K/mm3 (4.00-11.30)
[2023-04-05 05:39] LABS: Albumin, Blood 2.7 g/dL (3.4-5.0); Anion Gap 6 mmol/L (6-16); Blood Urea Nitrogen 34 mg/dL (8-24); Bun/Creatinine Ratio 18.2 (12.0-20.0); CO2, Blood 28 mmol/L (21-32); Calcium, Blood 8.7 mg/dL (8.5-10.1); Chloride, Blood 105 mmol/L (98-108); Creatinine, Blood 1.87 mg/dL (0.60-1.20); Glomerular Filtration Rate 38 (60-); Glucose, Blood 208 mg/dL (70-99); Phosphorus, Blood 4.2 mg/dL (2.5-4.9); Potassium, Blood 4.2 mmol/L (3.5-5.5); Sodium, Blood 139 mmol/L (136-145)
--- NOTE | 2023-04-05 17:20 | NUR ---
SHIFT SUMMARY PATIENT FILLED OUT POLST THIS SHIFT AND CHANGED CODE STATUS. FIRST DOSE OF BUMEX GIVEN, HELD COREG FOR LOW BLOOD PRESSURE AND DIURETIC ADMIN. HELD HEPARIN THIS SHIFT FOR LOW PLTS AT 89. ABLE TO AMBULATE TO BATHROOM INDEPENDENTLY, USING URINAL. CHANGED WEIGHT MONITORING TO DAILY. CARES ONGOING.
--- NOTE | 2023-04-06 04:18 | NUR ---
SHIFT SUMMARY GARY WAS ALERT AND FULLY ORIENTED ON ASSESSMENT. PT DENIES PAIN, SOB, CHEST PRESSURE. EDEMA TO BLE IMPROVING. NO ACUTE EVENTS TONIGHT, NO NEW OR WORSENING COMPLAINTS, SOFT B/P'S TONIGHT (MAP 67) LIKELY D/T DIURESIS . PT RESTING IN BED AT A LOW POSITION WITH CALL LIGHT INREACH AND HIS AT BEDSIDE.
[2023-04-06 04:22] VITALS: BP 96/60
[2023-04-06 06:24] LABS: Albumin, Blood 2.9 g/dL (3.4-5.0); Anion Gap 6 mmol/L (6-16); Blood Urea Nitrogen 43 mg/dL (8-24); Bun/Creatinine Ratio 21.9 (12.0-20.0); CO2, Blood 28 mmol/L (21-32); Calcium, Blood 8.8 mg/dL (8.5-10.1); Chloride, Blood 102 mmol/L (98-108); Creatinine, Blood 1.96 mg/dL (0.60-1.20); Glomerular Filtration Rate 36 (60-); Glucose, Blood 163 mg/dL (70-99); Phosphorus, Blood 4.4 mg/dL (2.5-4.9); Potassium, Blood 3.9 mmol/L (3.5-5.5); Sodium, Blood 136 mmol/L (136-145)
[2023-04-06 07:58] VITALS: BP 103/69
--- NOTE | 2023-04-06 10:06 | NUR ---
BLADDER SCAN PT SCAN DONE PER ORDER. POST VOID 80 ML. CARE ONGOING.
--- NOTE | 2023-04-06 10:45 | NUR ---
24 HOUR URINE 24 HOUR URINE STARTED. PT/SPOUCE EDUCATION DONE. URINE CONTAINER ON ICE INT HE BATHROOM. START 1030 END 04/07/23 1030. CAR ONGOING.
[2023-04-06 15:27] VITALS: BP 93/53
[2023-04-06 19:27] VITALS: BP 93/53
--- NOTE | 2023-04-07 04:21 | NUR ---
SHIFT SUMMARY PATIENT HAD NO ACUTE CHANGES. AAXOX 4 AND INDEPENDENT IN ROOM. 24 HOUR URINE COLLECTION IN PROGRESS. PIV REMAINS INTACT. TELE MONITOR NSR 72. SOFT BP'S 93/53. DENIES CHEST PAIN, SOB, AND N/V. VSS/AFEBRILE. SPOUSE STAYED OVERNIGHT. CALL LIGHT IN REACH. BED IN LOWEST POSITION. WILL CONTINUE TO MONITOR UNTIL DAY SHIFT NURSE ASSUMES CARE.
[2023-04-07 04:27] VITALS: BP 116/69
[2023-04-07 05:32] LABS: Hematocrit 36.5 % (37.0-53.0); Hemoglobin 12.3 g/dL (13.5-17.5)
[2023-04-07 06:00] LABS: Anion Gap 6 mmol/L (6-16); Blood Urea Nitrogen 41 mg/dL (8-24); Bun/Creatinine Ratio 21.4 (12.0-20.0); CO2, Blood 29 mmol/L (21-32); Calcium, Blood 8.8 mg/dL (8.5-10.1); Chloride, Blood 102 mmol/L (98-108); Creatinine, Blood 1.92 mg/dL (0.60-1.20); Glomerular Filtration Rate 37 (60-); Glucose, Blood 126 mg/dL (70-99); Magnesium, Blood 2.2 mg/dL (1.6-2.4); Phosphorus, Blood 3.3 mg/dL (2.5-4.9); Potassium, Blood 3.7 mmol/L (3.5-5.5); Sodium, Blood 137 mmol/L (136-145)
[2023-04-07 07:25] VITALS: BP 104/65
[2023-04-07] MEDS ORDERED: Carvedilol6.25 MG PO (12:06)
[2023-04-07] MEDS ORDERED: BUME2 PO (12:07)
[2023-04-07 12:12] LABS: Protein, Urine Quantitative <5.0 mg/dL (0.0-11.9)
[2023-04-07] MEDS ORDERED: NITR.4SL SL (12:12)
--- NOTE | 2023-04-07 14:15 | NUR ---
SHIFT SUMMARY AND DISCHARGE. PATIENT ALERT AND INTERACTIVE. PATIENT INDEPENDENT IN THE ROOM. PATIENT DENIES ANY PAIN AT THIS TIME. LUNGS COARSE AND DECREASED IN THE BASES. PATIENT CONTINUES TO HAVE LOWER LEG EDEMA. SKIN NOTED TO BE WRINKLED. PATIENT STATES GREATLY IMPROVED. EDUCATION PROVIDED RELATED TO FLUID INTAKE, DIET, WEIGHING SELF, AND TAKING MEDICATIONS ORDERED. DISCHARGE INSTRUCTIONS REVIEWED WITH PATIENT AND . IV DC'D, PATIENT TAKEN OUT VIA WHEELCHAIR. BELONGINGS AND MEDICATIONS RETURNED TO PATIENT.
== END 2023-04-07 14:23 | disposition home or self-care (01) | DRG 291 ==
LOC: ER 18:27 → MEDS 23:59
PROVIDERS: Family Medicine; Internal Medicine Nephrology; Physician Assistant; ADMIT Internal Medicine
DX: I13.0 Hypertensive heart and chronic kidney disease with heart failure and stage 1 through stage 4 chronic kidney disease, or unspecified chronic kidney disease (principal); I50.23 Acute on chronic systolic (congestive) heart failure; N17.9 Acute kidney failure, unspecified; D61.818 Other pancytopenia; E11.22 Type 2 diabetes mellitus with diabetic chronic kidney disease; N18.9 Chronic kidney disease, unspecified; E78.5 Hyperlipidemia, unspecified; I25.10 Atherosclerotic heart disease of native coronary artery without angina pectoris; N40.0 Benign prostatic hyperplasia without lower urinary tract symptoms; E11.42 Type 2 diabetes mellitus with diabetic polyneuropathy; E11.51 Type 2 diabetes mellitus with diabetic peripheral angiopathy without gangrene; E88.09 Other disorders of plasma-protein metabolism, not elsewhere classified; I25.2 Old myocardial infarction; Z86.73 Personal history of transient ischemic attack (TIA), and cerebral infarction without residual deficits; Z79.82 Long term (current) use of aspirin
CPT/HCPCS: 36415; 51798; 71046; 76770; 80048; 80053; 80069; 83735; 83880; 84156; 85014; 85018; 85025; 93005; 93010; 96374; 99285-25; A9270; C8929; J1644; J1940; Q9957

== ENCOUNTER 2023-09-11 20:06 | Inpatient (IN) | payer OTHER, MEDICARE ==
[~2023-09-11] VITALS: Ht 170.2 cm; Wt 70.9 kg
[~2023-09-11 20:06] MED LIST changes: +BUME2 PO; +Carvedilol6.25 MG PO; +ENTRESTO 24 MG1 EACH PO; +NITR.4SL SL; +POTA10T PO
[2023-09-11 21:15] LABS: Albumin, Blood 3.3 g/dL (3.4-5.0); Albumin/Globulin Ratio 0.8 (0.8-1.8); Bilirubin, Total 0.9 mg/dL (0.1-1.0); Bun/Creatinine Ratio 20.2 (12.0-20.0); Creatinine, Blood 1.93 mg/dL (0.60-1.20); Globulin, Blood 4.4 g/dL (2.2-4.0); Potassium, Blood 3.9 mmol/L (3.5-5.5); Total Protein, Blood 7.7 g/dL (6.4-8.2)
[2023-09-11 21:22] LABS: BASOPHILS ABSOLUTE AUTO 0.02 K/mm3 (0.00-0.23); BASOPHILS PERCENT AUTO 1 % (0-2); EOSINOPHILS ABSOLUTE AUTO 0.05 K/mm3 (0.00-0.68); EOSINOPHILS PERCENT AUTO 2 % (0-6); Hematocrit 36.2 % (37.0-53.0); Hemoglobin 11.6 g/dL (13.5-17.5); IMMATURE GRAN ABSOLUTE AUTO 0.01 K/mm3 (0.00-0.10); IMMATURE GRAN PERCENT AUTO 0 % (0-1); LYMPHOCYTES ABSOLUTE AUTO 0.69 K/mm3 (0.84-5.20); LYMPHOCYTES PERCENT AUTO 21 % (21-46); MONOCYTES ABSOLUTE AUTO 0.48 K/mm3 (0.16-1.47); MONOCYTES PERCENT AUTO 15 % (4-13); Mean Corpuscular HGB 27.3 pg (26.0-34.0); Mean Corpuscular Volume 85 fL (80-100); Mean Platelet Volume 11.3 fL (9.1-12.4); NEUTROPHILS ABSOLUTE AUTO 2.02 K/mm3 (1.96-9.15); NEUTROPHILS PERCENT AUTO 62 % (41-73); Platelet Count 78 K/mm3 (150-400); RDW Coefficient Variation 15.5 % (11.7-14.2); RDW Standard Deviation 47.8 fL (35.1-46.3); Red Blood Cell Count 4.25 M/mm3 (4.30-5.90); White Blood Cell Count 3.27 K/mm3 (4.00-11.30)
[2023-09-11] MEDS ORDERED: Furosemide 10 MG/ML 4ML Vial IV ONE (21:50)
[2023-09-11] MEDS ORDERED: Furosemide 10 MG/ML 10ML Vial IV ONE (21:55)
[2023-09-11] MEDS ORDERED: Ondansetron HCl 2 MG / ML 2ML Vial IV PRN (22:35)
[2023-09-11] MEDS ORDERED: Enoxaparin 40 MG/0.4 ML SYR SC SCH (23:00)
[2023-09-12 02:10] VITALS: BP 104/71
[2023-09-12 07:26] LABS: BASOPHILS ABSOLUTE AUTO 0.02 K/mm3 (0.00-0.23); BASOPHILS PERCENT AUTO 1 % (0-2); EOSINOPHILS ABSOLUTE AUTO 0.03 K/mm3 (0.00-0.68); EOSINOPHILS PERCENT AUTO 1 % (0-6); Hemoglobin 11.1 g/dL (13.5-17.5); IMMATURE GRAN ABSOLUTE AUTO 0.01 K/mm3 (0.00-0.10); IMMATURE GRAN PERCENT AUTO 0 % (0-1); LYMPHOCYTES ABSOLUTE AUTO 0.75 K/mm3 (0.84-5.20); LYMPHOCYTES PERCENT AUTO 22 % (21-46); MONOCYTES ABSOLUTE AUTO 0.46 K/mm3 (0.16-1.47); MONOCYTES PERCENT AUTO 14 % (4-13); Mean Corpuscular HGB 26.7 pg (26.0-34.0); Mean Corpuscular HGB Conc 31.7 g/dL (31.5-36.5); Mean Corpuscular Volume 84 fL (80-100); Mean Platelet Volume 11.4 fL (9.1-12.4); NEUTROPHILS ABSOLUTE AUTO 2.13 K/mm3 (1.96-9.15); NEUTROPHILS PERCENT AUTO 63 % (41-73); Platelet Count 85 K/mm3 (150-400); RDW Coefficient Variation 15.5 % (11.7-14.2); Red Blood Cell Count 4.15 M/mm3 (4.30-5.90)
[2023-09-12 07:31] VITALS: BP 104/74
[2023-09-12 07:46] LABS: Albumin, Blood 3.1 g/dL (3.4-5.0); Albumin/Globulin Ratio 0.7 (0.8-1.8); Bilirubin, Total 0.9 mg/dL (0.1-1.0); Bun/Creatinine Ratio 20.4 (12.0-20.0); Calcium, Blood 8.6 mg/dL (8.5-10.1); Creatinine, Blood 1.81 mg/dL (0.60-1.20); Globulin, Blood 4.2 g/dL (2.2-4.0); Potassium, Blood 3.7 mmol/L (3.5-5.5); Total Protein, Blood 7.3 g/dL (6.4-8.2)
[2023-09-12] MEDS ORDERED: Carvedilol 6.25 MG Tab PO SCH (08:00)
[2023-09-12] MEDS ORDERED: Tamsulosin HCl 0.4 MG Cap PO SCH ×2 (09:00→21:00)
[2023-09-12] MEDS ORDERED: Potassium Chloride 10 Meq Tablet SA PO SCH (09:00)
[2023-09-12] MEDS ORDERED: Aspirin 81 MG TabEC PO SCH (09:00)
[2023-09-12] MEDS ORDERED: Bumetanide 0.25 MG/ML 4ML ViaL IV SCH (09:00)
[2023-09-12] MEDS ORDERED: Rosuvastatin Calcium 10 MG Tab PO SCH (09:00)
[2023-09-12 17:25] VITALS: BP 102/76
[2023-09-12] MEDS ORDERED: LORazepam 2 MG/ML 1ML Injection IV PRN (17:30)
[2023-09-12 20:00] VITALS: BP 109/67
[2023-09-12] MEDS ORDERED: Sacubitril/Valsartan 49 MG/51 MG Tab PO SCH (21:00)
[2023-09-12] MEDS ORDERED: Insulin Regular 100 UNIT/ML 10ML Vial SC SCH (21:00)
[2023-09-13 05:16] LABS: BASOPHILS ABSOLUTE AUTO 0.02 K/mm3 (0.00-0.23); BASOPHILS PERCENT AUTO 1 % (0-2); EOSINOPHILS ABSOLUTE AUTO 0.05 K/mm3 (0.00-0.68); EOSINOPHILS PERCENT AUTO 2 % (0-6); Hematocrit 34.9 % (37.0-53.0); IMMATURE GRAN ABSOLUTE AUTO 0.01 K/mm3 (0.00-0.10); IMMATURE GRAN PERCENT AUTO 0 % (0-1); LYMPHOCYTES ABSOLUTE AUTO 0.74 K/mm3 (0.84-5.20); LYMPHOCYTES PERCENT AUTO 24 % (21-46); MONOCYTES ABSOLUTE AUTO 0.46 K/mm3 (0.16-1.47); MONOCYTES PERCENT AUTO 15 % (4-13); Mean Corpuscular HGB 26.8 pg (26.0-34.0); Mean Corpuscular HGB Conc 31.5 g/dL (31.5-36.5); Mean Corpuscular Volume 85 fL (80-100); NEUTROPHILS ABSOLUTE AUTO 1.78 K/mm3 (1.96-9.15); NEUTROPHILS PERCENT AUTO 58 % (41-73); Platelet Count 81 K/mm3 (150-400); RDW Coefficient Variation 15.3 % (11.7-14.2); RDW Standard Deviation 47.6 fL (35.1-46.3); White Blood Cell Count 3.06 K/mm3 (4.00-11.30)
[2023-09-13 05:23] VITALS: BP 107/70
[2023-09-13 05:44] LABS: Bun/Creatinine Ratio 20.9 (12.0-20.0); Calcium, Blood 8.7 mg/dL (8.5-10.1); Creatinine, Blood 1.96 mg/dL (0.60-1.20); Potassium, Blood 3.8 mmol/L (3.5-5.5)
--- NOTE | 2023-09-13 06:07 | NUR ---
SHIFT SUMMARY PT. IS A&O X4, PLEASANT AND COOP WITH CARE, ABLE TO MAKE HIS NEEDS KNOWN. SPENDING THE NIGHT IN THE HOSPITAL ROM. PT. DENIES PAIN, SOB, OR DISCOMFORT. NO ACUTE DISTRESS NOTED/REPORTED DURING THIS SHIFT. EDEMA +2-3 LE'S. LUUNGSOUNDS DIMINISHED, SOME CRACKLES LLL. NO COUGH NOTED DURING THIS SHIFT. CALL LIGHT IN REACH. WILL HANDOFF TO THE INCOMING SHIFT NURSE.
[2023-09-13 07:35] VITALS: BP 104/72
[2023-09-13] MEDS ORDERED: Carvedilol 6.25 MG Tab PO SCH (08:00)
[2023-09-13] MEDS ORDERED: Empagliflozin 10 MG TAB PO SCH (09:00)
[2023-09-13] MEDS ORDERED: Bumetanide 0.25 MG/ML 4ML ViaL IV SCH (09:00)
[2023-09-13] MEDS ORDERED: Rosuvastatin Calcium 10 MG Tab PO SCH (09:00)
[2023-09-13] MEDS ORDERED: Enoxaparin 40 MG/0.4 ML SYR SC SCH (09:00)
[2023-09-13] MEDS ORDERED: Potassium Chloride 10 Meq Tablet SA PO SCH (09:00)
[2023-09-13] MEDS ORDERED: Aspirin 81 MG TabEC PO SCH (09:00)
[2023-09-13 15:29] VITALS: BP 104/65
[2023-09-13 19:44] VITALS: BP 100/72
[2023-09-14 03:20] VITALS: BP 93/62
[2023-09-14 04:54] LABS: BASOPHILS ABSOLUTE AUTO 0.02 K/mm3 (0.00-0.23); BASOPHILS PERCENT AUTO 1 % (0-2); EOSINOPHILS ABSOLUTE AUTO 0.07 K/mm3 (0.00-0.68); EOSINOPHILS PERCENT AUTO 2 % (0-6); Hematocrit 36.3 % (37.0-53.0); Hemoglobin 11.6 g/dL (13.5-17.5); IMMATURE GRAN ABSOLUTE AUTO 0.01 K/mm3 (0.00-0.10); IMMATURE GRAN PERCENT AUTO 0 % (0-1); LYMPHOCYTES ABSOLUTE AUTO 0.71 K/mm3 (0.84-5.20); LYMPHOCYTES PERCENT AUTO 20 % (21-46); MONOCYTES ABSOLUTE AUTO 0.48 K/mm3 (0.16-1.47); MONOCYTES PERCENT AUTO 13 % (4-13); Mean Corpuscular HGB 26.5 pg (26.0-34.0); Mean Corpuscular Volume 83 fL (80-100); Mean Platelet Volume 10.9 fL (9.1-12.4); NEUTROPHILS ABSOLUTE AUTO 2.29 K/mm3 (1.96-9.15); NEUTROPHILS PERCENT AUTO 64 % (41-73); Platelet Count 93 K/mm3 (150-400); RDW Coefficient Variation 15.1 % (11.7-14.2); RDW Standard Deviation 45.9 fL (35.1-46.3); Red Blood Cell Count 4.37 M/mm3 (4.30-5.90); White Blood Cell Count 3.58 K/mm3 (4.00-11.30)
--- NOTE | 2023-09-14 05:01 | NUR ---
SHIFT SUMMARY. PATIENT IS A&OX4. PATIENT IS A 1P SBA TO THE BATHROOM. PATIENTS IN AT BEDSIDE T/O NIGHT. WILL ASSIST PATIENT TO THE BATHROOM. PATIENT IS PLEASANT AND COOPERATIVE WITH CARE. PATIENT ABLE TO MAKE HIS NEEDS KNOWN. PATIENT RESTED T/O NIGHT WITH RESPIRATIONS EQUAL AND UNLABORED. PATIENT HAS 3+ EDEMA TO BLE. PATIENT WEARS COMPRESSION STOCKINGS. BED IS LOCKED IN THE LWOEST POSITION WITH CALL LIGHT IN REACH. CARE IS ONGOING.
[2023-09-14 05:28] LABS: Bun/Creatinine Ratio 21.4 (12.0-20.0); Calcium, Blood 8.7 mg/dL (8.5-10.1); Creatinine, Blood 1.87 mg/dL (0.60-1.20); Potassium, Blood 3.6 mmol/L (3.5-5.5)
[2023-09-14 07:20] VITALS: BP 110/54
[2023-09-14 15:42] VITALS: BP 87/58
[2023-09-14 16:04] VITALS: BP 93/64
--- NOTE | 2023-09-14 18:15 | NUR ---
SHIFT SUMMARY; PATIENT IS PLEASANT AND COOPERATIVE WITH CARE. ENEDINA HOSE IN PLACE. SPOUSE AT BEDSIDE DURING SHIFT. ASSISTS PATIENT WITH ADL'S. B/P IS NOTED TO BE 93/64 AND HR 65 THIS EVENING AND BUMEX IS HELD. NOTIFIED. PATEINT IS AO X 4 DURING SHIFT. LUNGS ARE CLEAR BUT DIM THROUGHOUT. BOWEL SOUNDS ARE HYPOACTIVE. NO SKIN ISSUES ARE NOTED. WILL CONTINUE TO MONITOR THIS PATIENT.
[2023-09-15] VITALS (10 sets, daily range): BP systolic 76–93; BP diastolic 48–68
[2023-09-15] MEDS ORDERED: Midodrine 5 MG Tab PO ONE ×2 (03:45→15:00)
--- NOTE | 2023-09-15 03:46 | NUR ---
BP 84/60, ASYMPTOMATIC. FEET ELEVATED AND MD NOTIFIED. ORDERE5 MG OF MIDIDRINE X 1 PO. WILL MONITOR
--- NOTE | 2023-09-15 05:02 | NUR ---
CERTIFIED SKI PATROLLER SUMMARY BP LOW (84/60) OTHERWISE VSS. NOTIFIED AND MIDIDRINE PO ORDERED AND ADMINISTERED. ASYMPTOMAIC. WILL FOLLOW UP SOON FOR RESULTS. ALERT AND ORIENTED. UP WITH OBSERVATION.AFFECT CHEERFUL AND COOPERATIVE WITH TREATMENT. HAS BEEN RESTING QUIETLY WITH FEW INTERRUPTIONS. AT BEDSIDE FOR COMFORT. FLUIDS REMAIN RESTRICTED, DUE TO CHF AND DX OF FLUID OVERLOAD. LUNG SOUNDS DIMINISHED PER AUSCULTATION. CALL LIGHT IN REACH, RAILS UP X 2 AND BED IN LOW POSITION FOR SAFETY. WILL CONTINUE TO MONITOR. SEE DOC FLOW SHEETS FOR F/U BP
[2023-09-15 06:16] LABS: BASOPHILS ABSOLUTE AUTO 0.02 K/mm3 (0.00-0.23); BASOPHILS PERCENT AUTO 1 % (0-2); EOSINOPHILS ABSOLUTE AUTO 0.05 K/mm3 (0.00-0.68); EOSINOPHILS PERCENT AUTO 1 % (0-6); Hematocrit 35.7 % (37.0-53.0); Hemoglobin 11.6 g/dL (13.5-17.5); IMMATURE GRAN ABSOLUTE AUTO 0.01 K/mm3 (0.00-0.10); IMMATURE GRAN PERCENT AUTO 0 % (0-1); LYMPHOCYTES ABSOLUTE AUTO 0.79 K/mm3 (0.84-5.20); LYMPHOCYTES PERCENT AUTO 20 % (21-46); MONOCYTES ABSOLUTE AUTO 0.66 K/mm3 (0.16-1.47); MONOCYTES PERCENT AUTO 17 % (4-13); Mean Corpuscular HGB Conc 32.5 g/dL (31.5-36.5); Mean Corpuscular Volume 83 fL (80-100); Mean Platelet Volume 11.8 fL (9.1-12.4); NEUTROPHILS ABSOLUTE AUTO 2.47 K/mm3 (1.96-9.15); NEUTROPHILS PERCENT AUTO 62 % (41-73); Platelet Count 90 K/mm3 (150-400); RDW Coefficient Variation 15.2 % (11.7-14.2); Red Blood Cell Count 4.29 M/mm3 (4.30-5.90)
[2023-09-15 06:35] LABS: Albumin, Blood 2.6 g/dL (3.4-5.0); Albumin/Globulin Ratio 0.7 (0.8-1.8); Bilirubin, Total 0.7 mg/dL (0.1-1.0); Bun/Creatinine Ratio 21.1 (12.0-20.0); Calcium, Blood 8.3 mg/dL (8.5-10.1); Creatinine, Blood 1.94 mg/dL (0.60-1.20); Globulin, Blood 3.7 g/dL (2.2-4.0); Potassium, Blood 3.7 mmol/L (3.5-5.5); Total Protein, Blood 6.3 g/dL (6.4-8.2)
[2023-09-15] MEDS ORDERED: NS 250 ML IV SCH (10:00)
[2023-09-15] MEDS ORDERED: NS 250 ML IV ONE ×2 (14:55→17:15)
--- NOTE | 2023-09-15 17:14 | NUR ---
SHIFT SUMMARY PT ALERT AND ORIENTED TIMES FOUR. IN MORNING PATIENT HAD LOW BLOOD PRESSURE PHYSICIAN ORDERED NS 250 ML AND MIDODRINE 5 MG. PATIENT WAS RECHECKED AND HIS BLOOD PRESSURE 82/53 PULSE 72. PHYSICIAN ORDERED NS 250 ML. PATIENT REPORTS NO DIZZINESS, NAUSEA,SOB OR FATIGUE. RIGHT FOOT 2+ PITTING EDEMA, LEFT 2+ PITTING EDEMA
--- NOTE | 2023-09-15 18:31 | NUR ---
PATIENT RECIEVED BOLUS OF 250 ML NS PATIENT RESPONDED WELL. BP 93/64. PATIENT REPORTED NO DIZZINESS, SOB, FATIGUE. WILL GIVE REPORT TO ONCOMING NURSE. 0947 89/62, 1438 81/56, 1650 82/52 AND 1706 78/53. 1818 93/64. GAVE TO BOLUS OF NS 1457 AMD 1731 MIDODRINE 5 MG/ ALSO GAVE PATIENT WATER 480 ML OF WATER. PHYSICIAN HELD BLOOD PRESSURE LOWERING MEDICATIONS.
[2023-09-16] VITALS (12 sets, daily range): BP systolic 76–123; BP diastolic 58–99
--- NOTE | 2023-09-16 03:45 | NUR ---
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 ENCOURAGED TO KEEP FEET ELEVATED WHILE IN BED TO HELP WITH BP. PT COMPLIANT, BP 97/61 AT 0230 AND LATEST BP TAKEN: 123/99. HAS BEEN RESTING QUIETLY WITH FEW INTERRUPTIONS WITH AT BEDSIDE FOR COMFORT AND ASSISTS HIM TO THE BATHROOM NEEDED. AFFECT CHEERFUL AND COOPERATIVE WITH TREATMENT. CALL LIGHT IN REACH, RAILS UP X 2 AND BED IN LOW POSITION FOR SAFETY. ABLE TO REPOSITION SELF IN BED WITHOUT ASSIST. WILL CONTINUE TO MONITOR. MED TELE SR WITH 1ST DEGREE AND BBB AT 72.
[2023-09-16 05:42] LABS: BASOPHILS ABSOLUTE AUTO 0.01 K/mm3 (0.00-0.23); BASOPHILS PERCENT AUTO 0 % (0-2); EOSINOPHILS ABSOLUTE AUTO 0.06 K/mm3 (0.00-0.68); EOSINOPHILS PERCENT AUTO 2 % (0-6); Hematocrit 34.9 % (37.0-53.0); Hemoglobin 11.2 g/dL (13.5-17.5); IMMATURE GRAN PERCENT AUTO 0 % (0-1); LYMPHOCYTES ABSOLUTE AUTO 0.75 K/mm3 (0.84-5.20); LYMPHOCYTES PERCENT AUTO 20 % (21-46); MONOCYTES ABSOLUTE AUTO 0.59 K/mm3 (0.16-1.47); MONOCYTES PERCENT AUTO 16 % (4-13); Mean Corpuscular HGB Conc 32.1 g/dL (31.5-36.5); Mean Corpuscular Volume 84 fL (80-100); Mean Platelet Volume 11.7 fL (9.1-12.4); NEUTROPHILS PERCENT AUTO 62 % (41-73); Platelet Count 88 K/mm3 (150-400); RDW Coefficient Variation 15.3 % (11.7-14.2); RDW Standard Deviation 46.5 fL (35.1-46.3); Red Blood Cell Count 4.15 M/mm3 (4.30-5.90); White Blood Cell Count 3.71 K/mm3 (4.00-11.30)
[2023-09-16 06:02] LABS: Bun/Creatinine Ratio 19.9 (12.0-20.0); Calcium, Blood 8.5 mg/dL (8.5-10.1); Creatinine, Blood 1.86 mg/dL (0.60-1.20); Potassium, Blood 3.8 mmol/L (3.5-5.5)
[2023-09-16] MEDS ORDERED: Metoprolol Succinate 25 MG TABCR PO SCH (09:00)
--- NOTE | 2023-09-16 10:35 | NUR ---
rechecked b/p, pt on his back b/p is 76/58 with map of 64, notified Dr. Bernard, he will put orders in for midodrin, pt does report some dizziness. family at bedside. call light in reach.
[2023-09-16] MEDS ORDERED: Midodrine 5 MG Tab PO SCH (11:00)
[2023-09-16] MEDS ORDERED: NS 250 ML IV SCH (11:40)
[2023-09-16] MEDS ORDERED: NS 250 ML IV ONE (11:40)
--- NOTE | 2023-09-16 12:10 | NUR ---
have started gentle bolus of 250mls per Dr. Bernard, b/p at this time is 89/66 map 75, pt states dizziness is some improved. call light in reach.
--- NOTE | 2023-09-16 17:35 | NUR ---
SHIFT SUMMARY PT HYPOTENSIVE EARLIER IN THE SHIFT. SEE PREVIOUS NOTES. MIDODRINE ADDED TO EMAR AND 250ML FLUID BOLUS GIVEN TO HELP WITH BP. LAST BP 100/67. PT STATES HE IS NOT DIZZY, EVEN WITH STANDING AND AMBULATING TO THE BATHROOM. PT HOPEFUL TO LEAVE TOMORROW. NO OTHER ACUTE CHANGES IN ASSESSMENT AT THIS TIME. VS REVIEWED. CALL LIGHT IN REACH. DENIES OTHER NEEDS AT THIS TIME.
--- NOTE | 2023-09-17 04:26 | NUR ---
SHIFT SUMMARY: Pt is admitted for CHF exacerbation and is a full code. Is alert and able to make needs known. ADLs have been SBA aided by family. Denies pain or discomfort when asked. Telly reports sinus in the 70s with a bundle branch, 1st deg and PVCs.
[2023-09-17 05:22] LABS: BASOPHILS ABSOLUTE AUTO 0.02 K/mm3 (0.00-0.23); BASOPHILS PERCENT AUTO 1 % (0-2); EOSINOPHILS ABSOLUTE AUTO 0.06 K/mm3 (0.00-0.68); EOSINOPHILS PERCENT AUTO 2 % (0-6); Hematocrit 34.1 % (37.0-53.0); Hemoglobin 10.9 g/dL (13.5-17.5); IMMATURE GRAN ABSOLUTE AUTO 0.02 K/mm3 (0.00-0.10); IMMATURE GRAN PERCENT AUTO 1 % (0-1); LYMPHOCYTES ABSOLUTE AUTO 0.63 K/mm3 (0.84-5.20); LYMPHOCYTES PERCENT AUTO 20 % (21-46); MONOCYTES ABSOLUTE AUTO 0.54 K/mm3 (0.16-1.47); MONOCYTES PERCENT AUTO 17 % (4-13); Mean Corpuscular HGB 27.2 pg (26.0-34.0); Mean Corpuscular Volume 85 fL (80-100); Mean Platelet Volume 11.6 fL (9.1-12.4); NEUTROPHILS ABSOLUTE AUTO 1.86 K/mm3 (1.96-9.15); NEUTROPHILS PERCENT AUTO 60 % (41-73); Platelet Count 74 K/mm3 (150-400); RDW Coefficient Variation 15.4 % (11.7-14.2); RDW Standard Deviation 47.8 fL (35.1-46.3); Red Blood Cell Count 4.01 M/mm3 (4.30-5.90); White Blood Cell Count 3.13 K/mm3 (4.00-11.30)
[2023-09-17 05:49] LABS: Calcium, Blood 8.6 mg/dL (8.5-10.1); Creatinine, Blood 1.95 mg/dL (0.60-1.20); Potassium, Blood 4.1 mmol/L (3.5-5.5)
[2023-09-17 05:56] VITALS: BP 101/67
[2023-09-17 07:04] VITALS: BP 98/68
[2023-09-17] MEDS ORDERED: Metoprolol Succinate 25 MG TABCR PO SCH (09:00)
[2023-09-17 10:44] VITALS: BP 97/68
[2023-09-17] MEDS ORDERED: MIDO5 PO (12:26)
[2023-09-17] MEDS ORDERED: TOPROL XL25 MG PO (12:26)
--- NOTE | 2023-09-17 14:01 | NUR ---
PT DISCHARGED 1330 WITH DC INSTRUCTIONS. WENT HOME WITH BELONGINGS. WHEELCHAIR OUT ED/ADMISSIONS, PT AND AWAITING TAXI.
== END 2023-09-17 14:00 | disposition home or self-care (01) | DRG 280 ==
LOC: ER 20:06 → MEDS 20:07 → ER 09-12 00:22 → MEDS 09-12 00:35
PROVIDERS: Emergency Medicine; Internal Medicine; ADMIT Internal Medicine
DX: I13.0 Hypertensive heart and chronic kidney disease with heart failure and stage 1 through stage 4 chronic kidney disease, or unspecified chronic kidney disease (principal); I50.43 Acute on chronic combined systolic (congestive) and diastolic (congestive) heart failure; I21.A1 Myocardial infarction type 2; D61.818 Other pancytopenia; I25.5 Ischemic cardiomyopathy; E78.5 Hyperlipidemia, unspecified; E11.22 Type 2 diabetes mellitus with diabetic chronic kidney disease; I25.10 Atherosclerotic heart disease of native coronary artery without angina pectoris; E11.42 Type 2 diabetes mellitus with diabetic polyneuropathy; E11.51 Type 2 diabetes mellitus with diabetic peripheral angiopathy without gangrene; N40.1 Benign prostatic hyperplasia with lower urinary tract symptoms; R33.8 Other retention of urine; D69.6 Thrombocytopenia, unspecified; I27.20 Pulmonary hypertension, unspecified; N18.32 Chronic kidney disease, stage 3b; Z86.73 Personal history of transient ischemic attack (TIA), and cerebral infarction without residual deficits; I25.2 Old myocardial infarction; Z79.82 Long term (current) use of aspirin; Z79.899 Other long term (current) drug therapy
CPT/HCPCS: 36415; 71046; 80048; 80053; 82947; 83880; 84484; 85025; 93005; 93010; 96374; 99285-25; A9270; J1650; J1815; J1940; J7050

== ENCOUNTER 2023-12-06 17:12 | Inpatient (IN) | payer OTHER, MEDICARE ==
[~2023-12-06] VITALS: Ht 170.2 cm; Wt 70.2 kg
[~2023-12-06 17:12] MED LIST changes: +MIDO5 PO; +TOPROL XL25 MG PO
[2023-12-06] MEDS ORDERED: Magnesium Hydroxide Conc 10 ML UDC PO ONE (17:55)
[2023-12-06] MEDS ORDERED: Mineral Oil 133 ML Enema PR ONE (19:25)
[2023-12-06] MEDS ORDERED: Acetaminophen 500 MG Tab PO ONE (19:25)
[2023-12-06] MEDS ORDERED: Magnesium Citrate 300 ML BTL PO ONE (20:20)
[2023-12-06 20:39] LABS: BASOPHILS ABSOLUTE AUTO 0.03 K/mm3 (0.00-0.23); BASOPHILS PERCENT AUTO 1 % (0-2); EOSINOPHILS ABSOLUTE AUTO 0.03 K/mm3 (0.00-0.68); EOSINOPHILS PERCENT AUTO 1 % (0-6); Hematocrit 36.5 % (37.0-53.0); IMMATURE GRAN ABSOLUTE AUTO 0.02 K/mm3 (0.00-0.10); IMMATURE GRAN PERCENT AUTO 0 % (0-1); LYMPHOCYTES ABSOLUTE AUTO 0.64 K/mm3 (0.84-5.20); LYMPHOCYTES PERCENT AUTO 11 % (21-46); MONOCYTES PERCENT AUTO 10 % (4-13); Mean Corpuscular HGB 26.7 pg (26.0-34.0); Mean Corpuscular HGB Conc 32.9 g/dL (31.5-36.5); Mean Corpuscular Volume 81 fL (80-100); NEUTROPHILS ABSOLUTE AUTO 4.58 K/mm3 (1.96-9.15); NEUTROPHILS PERCENT AUTO 78 % (41-73); Platelet Count 104 K/mm3 (150-400); RDW Coefficient Variation 18.6 % (11.7-14.2); Red Blood Cell Count 4.49 M/mm3 (4.30-5.90)
[2023-12-06 21:18] LABS: Albumin/Globulin Ratio 0.6 (0.8-1.8); Bilirubin, Total 2.2 mg/dL (0.1-1.0); Bun/Creatinine Ratio 16.5 (12.0-20.0); Calcium, Blood 9.2 mg/dL (8.5-10.1); Creatinine, Blood 2.24 mg/dL (0.60-1.20); Globulin, Blood 4.8 g/dL (2.2-4.0); Potassium, Blood 2.5 mmol/L (3.5-5.5); Total Protein, Blood 7.8 g/dL (6.4-8.2)
[2023-12-06] MEDS ORDERED: Potassium Chloride 20 MEQ TabCR PO ONE (21:35)
[2023-12-06] MEDS ORDERED: Lactated Ringer's 1,000 ML IV SCH (21:40)
[2023-12-06 21:41] LABS: Magnesium, Blood 1.9 mg/dL (1.6-2.4)
[2023-12-06] MEDS ORDERED: Potassium Chloride 40 MEQ IV SCH (23:05)
[2023-12-06] MEDS ORDERED: Potassium Chl 20MEQ/Water100ML 100 ML IV SCH (23:20)
[2023-12-07] MEDS ORDERED: Ondansetron HCl 2 MG / ML 2ML Vial ONE (00:18)
[2023-12-07] MEDS ORDERED: Ondansetron HCl 2 MG / ML 2ML Vial IV ONE ×2 (00:20→00:55)
[2023-12-07] MEDS ORDERED: Bisacodyl 10 MG Supp PR PRN (03:55)
[2023-12-07] MEDS ORDERED: FLU VACC TS2024-25(6MOS UP)/PF 45 MCG/0.5 ML SYRINGE IM ONE (03:55)
[2023-12-07] MEDS ORDERED: Magnesium Hydroxide Conc 10 ML UDC PO PRN (03:55)
[2023-12-07] MEDS ORDERED: Acetaminophen 325 MG TABLET PO PRN (04:00)
[2023-12-07 05:02] VITALS: BP 114/90
[2023-12-07 05:49] LABS: BASOPHILS ABSOLUTE AUTO 0.02 K/mm3 (0.00-0.23); BASOPHILS PERCENT AUTO 0 % (0-2); EOSINOPHILS ABSOLUTE AUTO 0.01 K/mm3 (0.00-0.68); EOSINOPHILS PERCENT AUTO 0 % (0-6); Hematocrit 37.2 % (37.0-53.0); Hemoglobin 12.1 g/dL (13.5-17.5); IMMATURE GRAN ABSOLUTE AUTO 0.03 K/mm3 (0.00-0.10); IMMATURE GRAN PERCENT AUTO 0 % (0-1); LYMPHOCYTES ABSOLUTE AUTO 0.42 K/mm3 (0.84-5.20); LYMPHOCYTES PERCENT AUTO 6 % (21-46); MONOCYTES ABSOLUTE AUTO 0.69 K/mm3 (0.16-1.47); MONOCYTES PERCENT AUTO 9 % (4-13); Mean Corpuscular HGB 26.5 pg (26.0-34.0); Mean Corpuscular HGB Conc 32.5 g/dL (31.5-36.5); Mean Corpuscular Volume 82 fL (80-100); Mean Platelet Volume 11.4 fL (9.1-12.4); NEUTROPHILS ABSOLUTE AUTO 6.32 K/mm3 (1.96-9.15); NEUTROPHILS PERCENT AUTO 84 % (41-73); Platelet Count 93 K/mm3 (150-400); RDW Coefficient Variation 18.6 % (11.7-14.2); RDW Standard Deviation 54.1 fL (35.1-46.3); Red Blood Cell Count 4.56 M/mm3 (4.30-5.90); White Blood Cell Count 7.49 K/mm3 (4.00-11.30)
--- NOTE | 2023-12-07 06:01 | NUR ---
PATIENT IS A NEW ADMIT FROM THE ED. AXOX 4 AND ONE ASSIST FROM GURNEY TO BED. IV K+ INFUSING FROM THE ED. DENIES CHEST PAIN, SOB, AND N/V. VSS/AFEBRILE. LAB: CRITICAL LACTIC 4.0 UP FROM 2.9. HOSPITALIST DR BLEDSOE NOTIFIED AND TELEMETRY NSR 79, BBB, 1ST DEGREE HB AND REPORTS CONTINUE TO MONITOR. SPOUSE PRESENT ON ADMIT. DR LEYVA IN ROOM FOR ASSESSMENT AND PLACED MORE ORDERS. BLE EDEMA 3+ WITH SCATTERED SCABS ON SHINS. ORIENTED TO ROOM AND CALL LIGHT SYSTEM. WCTM.
[2023-12-07 06:12] LABS: Albumin, Blood 2.7 g/dL (3.4-5.0); Albumin/Globulin Ratio 0.6 (0.8-1.8); Bilirubin, Total 1.9 mg/dL (0.1-1.0); Bun/Creatinine Ratio 15.7 (12.0-20.0); Calcium, Blood 8.8 mg/dL (8.5-10.1); Creatinine, Blood 2.23 mg/dL (0.60-1.20); Globulin, Blood 4.4 g/dL (2.2-4.0); Potassium, Blood 3.3 mmol/L (3.5-5.5); Total Protein, Blood 7.1 g/dL (6.4-8.2)
[2023-12-07] MEDS ORDERED: NS 1,000 ML IV SCH (06:30)
[2023-12-07 07:55] VITALS: BP 106/83
[2023-12-07] MEDS ORDERED: Bumetanide 0.25 MG/ML 4ML ViaL IV SCH (09:00)
[2023-12-07] MEDS ORDERED: Bumetanide 1 MG Tab PO SCH ×2 (09:00→18:00)
[2023-12-07] MEDS ORDERED: Enoxaparin 30 MG/0.3 ML SYR SC SCH (09:00)
[2023-12-07] MEDS ORDERED: Midodrine 5 MG Tab PO SCH (13:00)
[2023-12-07 13:39] LABS: Magnesium, Blood 2.1 mg/dL (1.6-2.4); Potassium, Blood 3.3 mmol/L (3.5-5.5)
--- NOTE | 2023-12-07 15:01 | NUR ---
CHANGE CODE STATUS TO DNR/DNI. NEW POLST WILL NEED TO BE COMPLETED PRIOR TO D/C HOME. WAS ABLE TO PULL UP EFM DOCUMENTATION BY PCP. CHART NOTES REFECT THEIR CONVERSATION WITH PT TO CHANGE CODE STATUS FROM DNI TO DNR/DNI. CONFIRMED DNR PREFERENCE WITH PT'S SPOUSE. VERBAL ORDER OBTAINED BY TO UPDATE CODE STATUS TO DNR. PRIMARY RN REPORTS SHE WAS ABLE TO PLACE [place] CATHETER FOR STRICT I&O. PROVIDER HAS PLACED ORDER FOR I&O EVERY 4 HRS. THIS PC RN REMOVED DUPLICATE ORDERS. PC TO REMAIN AVAILABLE.
[2023-12-07 15:19] LABS: Source, Urine Foley catheter
[2023-12-07 15:25] LABS: Bilirubin, Urine Neg (Neg); Blood, Urine 3+ (Neg); Color, Urine Yellow (P-Yellow); Glucose Qualitative, Urine 4+ (Neg); Ketones, Urine Neg (Neg); Leukocyte Esterase, Urine Neg (Neg); Nitrite, Urine Neg (Neg); Protein, Urine 3+ (Neg); Specific Gravity, Urine 1.015 (1.003-1.022); Urobilinogen, Urine 1+ (Normal)
[2023-12-07] MEDS ORDERED: Potassium Chloride 10 Meq Tablet SA PO SCH (15:45)
[2023-12-07] MEDS ORDERED: Potassium Chloride 10 Meq Tablet SA PO ONE (15:45)
[2023-12-07] MEDS ORDERED: Bumetanide 0.25 MG/ML 10ML Vial IV SCH ×2 (15:45→15:50)
[2023-12-07 16:22] LABS: Appearance, Urine Hazy (Clear)
[2023-12-07 16:23] LABS: Amorphous Light (0-Heavy); Bacteria Many /hpf; Mucus Light (0-Heavy); Squamous Epithelial Cells Rare /hpf (Few); White Blood Cells, Urine 0-2 /hpf (0-5)
[2023-12-07 16:43] VITALS: BP 105/66
--- NOTE | 2023-12-07 17:45 | NUR ---
SHIFT NOTE: PT A/OX4 ABLE TO MAKE NEEDS KNONW. HIS IS AT BEDSIDE AND ASSIST WITH CARE. HE IS 1P ASSIST FOR ADLS. HE HAS 4+ PITTING EDEMA OF LOWER EXTRIMITIES AND REPORT DISCOMFORT. HE IN ON TELE IN NSR WITH BBB. NO ACUTE EVENTS THIS SHIFT. HE DENIES CHEST PAIN/PRESSURE. HE IS ON RA WITH SPO2>90, DENIES SOB. THIS RN PLACED A [place] FOR STRICT I&OS PER DR. HENDERSON ORDER. PT REPORTS DISCOMFORT WITH [place], EDUCATED ON THE NEED FOR STRICT I&OS. HIS CODE STATUS WAS UPDATED PER PC AND . FLUID RESTRICTION UPDATED TO 1L PER DR. HARRIS. WILL CONTINUE TO MONITOR AND REPORT TO ONCOMING RN.
[2023-12-07] MEDS ORDERED: Dose Adjust by Pharmacy XX STA (20:26)
[2023-12-07] MEDS ORDERED: Heparin Sodium,Porcine/0.5 NS 500 ML IV SCH (20:30)
--- NOTE | 2023-12-07 21:09 | NUR ---
2 IVS PLACED, PT NOW HAS HEPARIN DRIP ORDERED. MD WAS IN THE ROOM EXPLAINING MED DRIP. PTS ASKED QUESTIONS AND NURSEANSWERED QUESTIONS. BOTH VOICED AGREEMENT OF MED. BLOOD DRAWN AGAIN BY CLINICAL AIDE AND SENT TO LAB, AWAITING MED FROM PHARM. CALL LIGHT IN REACH
[2023-12-07 21:19] LABS: International Normalized Ratio 1.46; Prothrombin Time Results 15.2 Sec (9.7-11.5)
[2023-12-07 21:27] VITALS: BP 98/68
--- NOTE | 2023-12-07 22:41 | NUR ---
HEPARIN DRIP STARTED. RESTING QUIETLY. CALL LIGHT IN REACH
[2023-12-08] VITALS (7 sets, daily range): BP systolic 92–106; BP diastolic 66–79
--- NOTE | 2023-12-08 03:18 | NUR ---
REST ROOM ATTENDANT SUMMARY BP LOW NORMAL, OTHERWISE VSS. ALERT AND ORIENTED. MD IN TO SEE PT AND DISCUSSED HEPARIN DRIP, HEPARIN DRIP ORDERED AND AFTER NEW IV SITES PLACED, STARTED, (SEE MAR FOR DETAILS). CONTINUES TO BE DIURESED, BLE 4+ PITTING EDEMA. [place] IN PLACE FOR STRICT I AND O. AT BEDSIDE FOR PT COMFORT. HAS BEEN RESTING QUIETLY AT INTERVALS. ABLE TO REPOSITION SELF IN BED FOR COMFORT AND SKIN MAINTENANCE. CALL LIGHT IN REACH, RAILS UP X 2 AND BED IN LOW POSITION FOR SAFETY. WILL CONTINUE TO MONITOR
[2023-12-08 05:18] LABS: Hemoglobin 11.6 g/dL (13.5-17.5)
[2023-12-08] MEDS ORDERED: Dose Adjust by Pharmacy XX STA ×2 (05:43→12:43)
[2023-12-08 06:03] LABS: Albumin, Blood 2.6 g/dL (3.4-5.0); Albumin/Globulin Ratio 0.6 (0.8-1.8); Bilirubin, Direct 1.2 mg/dL (0.0-0.3); Bilirubin, Indirect 0.8 mg/dL (0.1-0.7); Bun/Creatinine Ratio 15.5 (12.0-20.0); Calcium, Blood 8.7 mg/dL (8.5-10.1); Creatinine, Blood 2.26 mg/dL (0.60-1.20); Globulin, Blood 4.2 g/dL (2.2-4.0); Magnesium, Blood 1.9 mg/dL (1.6-2.4); Phosphorus, Blood 3.4 mg/dL (2.5-4.9); Potassium, Blood 3.6 mmol/L (3.5-5.5); Total Protein, Blood 6.8 g/dL (6.4-8.2)
[2023-12-08] MEDS ORDERED: Potassium Chloride 10 Meq Tablet SA PO SCH (09:00)
[2023-12-08] MEDS ORDERED: Bumetanide 0.25 MG/ML 4ML ViaL IV SCH (09:00)
[2023-12-08 17:54] LABS: Protein, Urine Quantitative 82.8 mg/dL (0.0-11.9)
[2023-12-08] MEDS ORDERED: Apixaban 5 MG Tab PO SCH (18:00)
--- NOTE | 2023-12-08 18:19 | NUR ---
SHIFT SUMMARY PT A&OX4, AMB W/ SBA, TOLERATING PO, VOIDING, AND DENIED PAIN. PT HYPOTENSIVE AT TIME OF 1800 BUMEX DOSE. MIDODRINE GIVEN AND BUMEX HELD. HEP DRIP D/C AND ELIQUIS GIVEN PER ORDER. 24 HR URINE COLLECTION COMPLETE. CARDIOLOGY CONSULT COMPLETE, SEE CONSULT NOTE. NO OTHER ACUTE CHANGES. CALL LIGHT WITHIN REACH AND PT ABLE TO MAKE NEEDS KNOWN.
--- NOTE | 2023-12-09 04:50 | NUR ---
SHIFT SUMMARY PATIENT SLEPT WITH IN ROOM ALL NIGHT. GAVE PATIENT TYLENOL FOR DISCOMFORTS FROM [place] AND A SUPPOSITORY FOR CONSTIPATION. SMALL STOOL RETURNED.TELE SR 63 WITH BBB AND 1ST DEGREE BLOCK.
[2023-12-09 04:53] LABS: Hematocrit 34.1 % (37.0-53.0); Hemoglobin 11.2 g/dL (13.5-17.5)
[2023-12-09 05:30] LABS: Albumin, Blood 2.4 g/dL (3.4-5.0); Anion Gap 14 mmol/L (3-11); Blood Urea Nitrogen 41 mg/dL (8-24); Bun/Creatinine Ratio 16.9 (12.0-20.0); CO2, Blood 26 mmol/L (21-32); Calcium, Blood 8.7 mg/dL (8.5-10.1); Chloride, Blood 98 mmol/L (98-108); Creatinine, Blood 2.43 mg/dL (0.60-1.20); Glomerular Filtration Rate 28 (60-); Glucose, Blood 161 mg/dL (70-99); Phosphorus, Blood 3.5 mg/dL (2.5-4.9); Potassium, Blood 3.6 mmol/L (3.5-5.5); Sodium, Blood 134 mmol/L (136-145)
[2023-12-09 05:45] VITALS: BP 106/75
[2023-12-09 07:22] VITALS: BP 106/79
[2023-12-09] MEDS ORDERED: Potassium Chloride 10 Meq Tablet SA PO SCH (13:00)
[2023-12-09] MEDS ORDERED: Bumetanide 0.25 MG/ML 4ML ViaL IV SCH (13:00)
[2023-12-09 16:40] VITALS: BP 108/73
--- NOTE | 2023-12-09 18:55 | NUR ---
SHIFT SUMMARY PATIEMT ALERT AND INTERACTIVE. PATIENT UP MULTIPLE TIMES TO HAVE A BM WITH MINIMAL SUCCESS. PATIENT NOT WANTING SUPPOSITORY AT THIS TIME. EDUCATION PROVIDED TO BOTH AND PATIENT REGARDING THE IMPORTANCE OF TAKING MEDICATIONS AT HOME ORDERED, KEEP TO FLUID RESTRICTION, MOBILIZING AND ELEVATING LEGS WHEN NOT MOBILIZING. 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 RE EDUCATED PATIENT THE IMPORTANCE OF TAKING MEDICATIONS ORDERED TO PREVENT REPEATED HOSPITALIZATIONS. ALSO DISCUSSED WITH PATIENT AND THE IMPORTANCE OF WEIGHING DAILY AND NOTIFYING PCP IF HAVING WEIGHT GAIN.
[2023-12-09 20:00] VITALS: BP 111/76
[2023-12-10 04:15] VITALS: BP 102/73
--- NOTE | 2023-12-10 04:51 | NUR ---
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 REQUIRES 1 PERSON ASSIST WITH TRANSFERS AND AMBULATING TO THE BATHROOM. [place] CATHETER INTACT DRAINING YELLOW URINE. REMAINS ON STRICT I&O. ONLY TOOK IN SIPS WITH HIS MEDS THIS SHIFT. REMAINS ON A 1000CC FLUID RESTRICTION WHICH HE IS NONCOMPLIANT WITH. REMAINS ON TELEMETRY AT [facility] AT A RATE OF 71. HAS 3-4+ EDEMA TO BLE. NO C/O PAIN THIS SHIFT. VSS SATTING WELL ON RA. HE ATTEMPTED TO HAVE A BM THIS SHIFT BUT WAS UNABLE TO. PTS IS AT BEDSIDE. SLEEPING AT THIS TIME
[2023-12-10 04:57] LABS: Hematocrit 36.3 % (37.0-53.0); Hemoglobin 11.9 g/dL (13.5-17.5)
[2023-12-10 05:18] LABS: Albumin, Blood 2.6 g/dL (3.4-5.0); Anion Gap 15 mmol/L (3-11); Blood Urea Nitrogen 41 mg/dL (8-24); Bun/Creatinine Ratio 17.2 (12.0-20.0); CO2, Blood 26 mmol/L (21-32); Calcium, Blood 8.7 mg/dL (8.5-10.1); Chloride, Blood 98 mmol/L (98-108); Creatinine, Blood 2.39 mg/dL (0.60-1.20); Glomerular Filtration Rate 28 (60-); Glucose, Blood 139 mg/dL (70-99); Potassium, Blood 3.3 mmol/L (3.5-5.5); Sodium, Blood 136 mmol/L (136-145)
[2023-12-10] MEDS ORDERED: Potassium Chloride 20 MEQ TabCR PO ONE (06:25)
[2023-12-10 07:30] VITALS: BP 101/78
[2023-12-10] MEDS ORDERED: Bumetanide 1 MG Tab PO SCH ×2 (11:05→18:00)
[2023-12-10] MEDS ORDERED: Potassium Chloride 10 Meq Tablet SA PO SCH ×2 (11:05→17:00)
[2023-12-10] MEDS ORDERED: ELIQUIS2.5 MG PO (14:00)
--- NOTE | 2023-12-10 21:28 | NUR ---
DISCHARGE/SHIFT SUMMARY: A&Ox4. PLEASANT AND COOPERATIVE WITH CARE. CALLS APPROPRIATELY AND IS ABLE TO ADVOCATE NEEDS EFFECTIVELY. AT BEDSIDE. AMBULATES SBA c FWW. MEDS WHOLE WITH FLUIDS. CONTINENT OF BOWEL; CATHETER FOR STRICT I/Os. TELE SINUS. NO C/O PAIN OR DISCOMFORT TODAY. INSTRUCTED TO FOLLOW UP WITH DR HARRIS NEXT THURSDAY AND PRIMARY CARE PROVIDER NEXT WEEK FOR [id number]. MED REC TO [facility]. PATIENT ESCORTED FROM FLOOR BY SILVIO HU, VIA WHEELCHAIR WITH ALL BELONGINGS AND DISCHARGE PACKET. TRANSPORTATION PROVIDED BY .
== END 2023-12-10 14:49 | disposition home health service (06) | DRG 292 ==
LOC: ER 17:12 → MEDS 17:13
PROVIDERS: Family Medicine; Internal Medicine; Internal Medicine Nephrology; Student in an Organized Health Care Education/Training Program; ADMIT Internal Medicine
DX: I50.23 Acute on chronic systolic (congestive) heart failure (principal); E87.1 Hypo-osmolality and hyponatremia; E87.21 Acute metabolic acidosis; N17.9 Acute kidney failure, unspecified; N25.81 Secondary hyperparathyroidism of renal origin; E80.6 Other disorders of bilirubin metabolism; E87.6 Hypokalemia; I25.5 Ischemic cardiomyopathy; I51.3 Intracardiac thrombosis, not elsewhere classified; N18.30 Chronic kidney disease, stage 3 unspecified; I25.10 Atherosclerotic heart disease of native coronary artery without angina pectoris; N40.0 Benign prostatic hyperplasia without lower urinary tract symptoms; D63.1 Anemia in chronic kidney disease; E88.09 Other disorders of plasma-protein metabolism, not elsewhere classified; K59.00 Constipation, unspecified; I95.9 Hypotension, unspecified; Z79.899 Other long term (current) drug therapy; Z79.82 Long term (current) use of aspirin; I25.2 Old myocardial infarction; Z86.73 Personal history of transient ischemic attack (TIA), and cerebral infarction without residual deficits; Z98.890 Other specified postprocedural states
CPT/HCPCS: 36415; 51702; 71046; 74177; 76770; 80053; 80069; 81001; 82248; 83605; 83735; 83880; 84100; 84132; 84156; 85014; 85018; 85025; 85610; 85730; 87086; 93005; 93010; 96361; 96365-59; 96366; 96372; 96375; 96376; 99285-25; A9270; C8929; G0378; J1644; J1650; J2405; J3480; J7030; J7120; Q9957; Q9967

== ENCOUNTER 2023-12-31 07:16 | Emergency (ER) | payer OTHER, MEDICARE ==
[~2023-12-31] VITALS: Ht 175.3 cm; Wt 81.7 kg
[~2023-12-31 07:16] MED LIST changes: +ELIQUIS2.5 MG PO
[2023-12-31] MEDS ORDERED: ASPI81CH PO (07:41)
[2023-12-31] MEDS ORDERED: ELIQUIS2.5 MG PO (07:42)
[2023-12-31] MEDS ORDERED: DAPAGLIFLOZIN10 MG PO (07:42)
[2023-12-31 08:21] LABS: BASOPHILS ABSOLUTE AUTO 0.02 K/mm3 (0.00-0.23); BASOPHILS PERCENT AUTO 0 % (0-2); EOSINOPHILS ABSOLUTE AUTO 0.01 K/mm3 (0.00-0.68); EOSINOPHILS PERCENT AUTO 0 % (0-6); Hematocrit 36.2 % (37.0-53.0); Hemoglobin 11.7 g/dL (13.5-17.5); IMMATURE GRAN ABSOLUTE AUTO 0.02 K/mm3 (0.00-0.10); IMMATURE GRAN PERCENT AUTO 0 % (0-1); LYMPHOCYTES ABSOLUTE AUTO 0.32 K/mm3 (0.84-5.20); LYMPHOCYTES PERCENT AUTO 5 % (21-46); MONOCYTES ABSOLUTE AUTO 0.55 K/mm3 (0.16-1.47); MONOCYTES PERCENT AUTO 8 % (4-13); Mean Corpuscular HGB 26.6 pg (26.0-34.0); Mean Corpuscular HGB Conc 32.3 g/dL (31.5-36.5); Mean Corpuscular Volume 82 fL (80-100); Mean Platelet Volume 9.9 fL (9.1-12.4); NEUTROPHILS ABSOLUTE AUTO 6.11 K/mm3 (1.96-9.15); NEUTROPHILS PERCENT AUTO 87 % (41-73); Platelet Count 92 K/mm3 (150-400); RDW Coefficient Variation 19.9 % (11.7-14.2); RDW Standard Deviation 57.5 fL (35.1-46.3); White Blood Cell Count 7.03 K/mm3 (4.00-11.30)
[2023-12-31 08:42] LABS: Albumin, Blood 2.7 g/dL (3.4-5.0); Albumin/Globulin Ratio 0.6 (0.8-1.8); Bilirubin, Total 2.2 mg/dL (0.1-1.0); Bun/Creatinine Ratio 24.3 (12.0-20.0); C-REACTIVE PROTEIN, EXT RANGE 3.42 mg/dL (0.000-0.300); Calcium, Blood 9.1 mg/dL (8.5-10.1); Creatinine, Blood 1.73 mg/dL (0.60-1.20); Globulin, Blood 4.8 g/dL (2.2-4.0); Potassium, Blood 3.5 mmol/L (3.5-5.5); Total Protein, Blood 7.5 g/dL (6.4-8.2)
[2023-12-31] MEDS ORDERED: Cephalexin Monohydrate 500 MG Cap PO ONE (09:05)
[2023-12-31] MEDS ORDERED: CEPH500 PO (10:45)
[2023-12-31] MEDS ORDERED: Ondansetron 4 MG SoluTab SL ONE (14:20)
[2023-12-31 15:00] VITALS: BP 105/68
== END 2023-12-31 15:05 | disposition home or self-care (01) ==
LOC: ER 07:16
PROVIDERS: Student in an Organized Health Care Education/Training Program
DX: L03.116 Cellulitis of left lower limb (principal); R60.0 Localized edema; N18.6 End stage renal disease; I50.20 Unspecified systolic (congestive) heart failure; E78.5 Hyperlipidemia, unspecified; Z86.73 Personal history of transient ischemic attack (TIA), and cerebral infarction without residual deficits; Z79.82 Long term (current) use of aspirin; Z79.899 Other long term (current) drug therapy
CPT/HCPCS: 80053; 83735; 83880; 85025; 85651; 86140; 93005; 93010; 99284-25; A9270

== ENCOUNTER 2023-12-31 17:14 | Inpatient (IN) | payer OTHER, MEDICARE ==
[~2023-12-31] VITALS: Ht 170.2 cm; Wt 70.5 kg
[~2023-12-31 17:14] MED LIST changes: +ASPI81CH PO; +CEPH500 PO; +DAPAGLIFLOZIN10 MG PO
[2023-12-31] MEDS ORDERED: Vancomycin HCL 1,250 MG in NS 250 ML IV ONE (17:40)
[2023-12-31 18:01] LABS: BASOPHILS ABSOLUTE AUTO 0.03 K/mm3 (0.00-0.23); BASOPHILS PERCENT AUTO 0 % (0-2); EOSINOPHILS PERCENT AUTO 0 % (0-6); Hemoglobin 11.6 g/dL (13.5-17.5); IMMATURE GRAN ABSOLUTE AUTO 0.06 K/mm3 (0.00-0.10); IMMATURE GRAN PERCENT AUTO 1 % (0-1); LYMPHOCYTES ABSOLUTE AUTO 0.42 K/mm3 (0.84-5.20); LYMPHOCYTES PERCENT AUTO 4 % (21-46); MONOCYTES ABSOLUTE AUTO 0.67 K/mm3 (0.16-1.47); MONOCYTES PERCENT AUTO 6 % (4-13); Mean Corpuscular HGB 26.8 pg (26.0-34.0); Mean Corpuscular HGB Conc 31.4 g/dL (31.5-36.5); Mean Corpuscular Volume 86 fL (80-100); Mean Platelet Volume 11.1 fL (9.1-12.4); NEUTROPHILS ABSOLUTE AUTO 10.39 K/mm3 (1.96-9.15); NEUTROPHILS PERCENT AUTO 90 % (41-73); Platelet Count 82 K/mm3 (150-400); RDW Coefficient Variation 20.3 % (11.7-14.2); RDW Standard Deviation 61.1 fL (35.1-46.3); Red Blood Cell Count 4.33 M/mm3 (4.30-5.90); White Blood Cell Count 11.57 K/mm3 (4.00-11.30)
[2023-12-31] MEDS ORDERED: NS 250 ML IV SCH (18:05)
[2023-12-31] MEDS ORDERED: Lidocaine 2% Jelly Uro-Jet UR ONE (18:05)
[2023-12-31 18:14] LABS: International Normalized Ratio 1.62; Prothrombin Time Results 16.7 Sec (9.7-11.5)
[2023-12-31 18:15] LABS: Albumin, Blood 2.6 g/dL (3.4-5.0); Albumin/Globulin Ratio 0.5 (0.8-1.8); Bilirubin, Direct 1.9 mg/dL (0.0-0.3); Bilirubin, Indirect 1.9 mg/dL (0.1-0.7); Bilirubin, Total 3.8 mg/dL (0.1-1.0); Bun/Creatinine Ratio 22.3 (12.0-20.0); Calcium, Blood 8.9 mg/dL (8.5-10.1); Creatinine, Blood 1.79 mg/dL (0.60-1.20); Magnesium, Blood 2.2 mg/dL (1.6-2.4); Phosphorus, Blood 3.6 mg/dL (2.5-4.9); Potassium, Blood 3.9 mmol/L (3.5-5.5); Total Protein, Blood 7.6 g/dL (6.4-8.2)
[2023-12-31 18:44] LABS: Source, Urine Clean Catch
[2023-12-31 18:51] LABS: Appearance, Urine Clear (Clear); Bilirubin, Urine Neg (Neg); Blood, Urine 2+ (Neg); Color, Urine Yellow (P-Yellow); Glucose Qualitative, Urine 4+ (Neg); Ketones, Urine Neg (Neg); Leukocyte Esterase, Urine Neg (Neg); Nitrite, Urine Neg (Neg); Protein, Urine 2+ (Neg); Urobilinogen, Urine NORM (Normal)
[2023-12-31 18:58] LABS: Bacteria Many /hpf; Squamous Epithelial Cells Rare /hpf (Few); White Blood Cells, Urine 0-2 /hpf (0-5)
[2023-12-31] MEDS ORDERED: Ondansetron HCl 2 MG / ML 2ML Vial IV PRN (20:00)
[2023-12-31] MEDS ORDERED: FLU VACC TS2024-25(6MOS UP)/PF 45 MCG/0.5 ML SYRINGE IM SCH (20:05)
[2023-12-31] MEDS ORDERED: CeFAZolin Sodium 2,000 MG in NS 100 ML IV SCH (20:30)
[2023-12-31] MEDS ORDERED: Lactobacil 2-S.Thermo-Bifido 1 1 Cap PO SCH (21:00)
[2023-12-31] MEDS ORDERED: Apixaban 5 MG Tab PO SCH (21:00)
[2023-12-31 22:06] VITALS: BP 90/67
[2023-12-31 23:56] VITALS: BP 92/70
[2024-01-01 03:05] VITALS: BP 96/73
[2024-01-01 04:43] LABS: BASOPHILS PERCENT AUTO 0 % (0-2); EOSINOPHILS PERCENT AUTO 0 % (0-6); Hematocrit 35.1 % (37.0-53.0); Hemoglobin 11.4 g/dL (13.5-17.5); IMMATURE GRAN ABSOLUTE AUTO 0.04 K/mm3 (0.00-0.10); IMMATURE GRAN PERCENT AUTO 0 % (0-1); LYMPHOCYTES PERCENT AUTO 4 % (21-46); MONOCYTES ABSOLUTE AUTO 0.55 K/mm3 (0.16-1.47); MONOCYTES PERCENT AUTO 5 % (4-13); Mean Corpuscular HGB 27.3 pg (26.0-34.0); Mean Corpuscular HGB Conc 32.5 g/dL (31.5-36.5); Mean Corpuscular Volume 84 fL (80-100); Mean Platelet Volume 11.6 fL (9.1-12.4); NEUTROPHILS ABSOLUTE AUTO 9.15 K/mm3 (1.96-9.15); NEUTROPHILS PERCENT AUTO 90 % (41-73); Platelet Count 74 K/mm3 (150-400); RDW Coefficient Variation 20.5 % (11.7-14.2); RDW Standard Deviation 60.4 fL (35.1-46.3); Red Blood Cell Count 4.17 M/mm3 (4.30-5.90); White Blood Cell Count 10.14 K/mm3 (4.00-11.30)
[2024-01-01 04:52] LABS: International Normalized Ratio 2.15
[2024-01-01 04:57] LABS: Prothrombin Time Results 21.7 Sec (9.7-11.5)
--- NOTE | 2024-01-01 05:07 | NUR ---
call placed to resident- called to tell him pt vomited, but denies any nausea or anti-emetics. also called to tell him that patient has not voided since coming up to PCU. He was straight cathed in ED earlier, and around 0230 he only had 120ml in his bladder. asked if we wanted to add any fluids, given that pt might be dehydrated and last lactic acid (prior to AM labs) was 6.4 @ 2140. 1L of ns ordered from provider- attempting to be conservative d/t emeda to BLE.
[2024-01-01] MEDS ORDERED: NS 1,000 ML IV SCH (05:10)
[2024-01-01 05:13] LABS: Albumin, Blood 2.2 g/dL (3.4-5.0); Albumin/Globulin Ratio 0.6 (0.8-1.8); Bilirubin, Total 3.4 mg/dL (0.1-1.0); Bun/Creatinine Ratio 23.5 (12.0-20.0); Calcium, Blood 8.6 mg/dL (8.5-10.1); Potassium, Blood 4.3 mmol/L (3.5-5.5); Total Protein, Blood 6.2 g/dL (6.4-8.2)
[2024-01-01] MEDS ORDERED: OxyCODONE HCL 5 MG TAB PO PRN (05:40)
[2024-01-01] MEDS ORDERED: Acetaminophen 325 MG TABLET PO PRN (05:40)
--- NOTE | 2024-01-01 06:20 | NUR ---
shift summary- Pt resting comfortable most of the night. BLE swollen to touch, +3 edema. LLE is very red with noticable scabs. Pictures taken and in soft chart. Also of note, pt has red, fragile, abraisions noted on the head of his penis- pictures also in soft chart. Pt was placed in a male purwick once arriving to PCU- though has had 0ml of urine output. Bladder scanned him at 0230 and 0545 and both times he has less than 200ml in his bladder. around 0600 patient vomited, but denied nausea medication and nausea- only stated that he was confused and didn't understand why he was vomiting. Labs back and showed elevated AST/ALT, provider made aware, and also asked for pain medication as pt was complaining of 6/10 pain with no pain meds ordered. patient slept majority of the night, but when he sleeps it appears that his spo2 dips well-below 92%- but within 15 seconds his o2 saturation climbs up to around 98%. No oxygen applied to patient as pt did not sustain low spo2 saturations, nor did this event happen too periodically. no other issues to note throughout the night.
[2024-01-01 07:23] VITALS: BP 93/67
[2024-01-01] MEDS ORDERED: Midodrine 5 MG Tab PO SCH (09:00)
[2024-01-01] MEDS ORDERED: Bumetanide 1 MG Tab PO SCH (09:00)
--- NOTE | 2024-01-01 09:57 | NUR ---
CARE ASSUMPTION UPON CARE ASSUMPTION, PT SLEEPING, DESATTING TO 70'S WHILE SLEEPING BUT NOT SUSTAINING. PT PLACED ON 2L NC, KEEPING SATS >90%. PT A&OX4. FINE CRACKLES IN LUNG BASES. TELEMETRY SHOWS NSR W/ BBB, HR 70'S. BP SOFT. PT UNABLE TO VOID SINCE ADMIT, PT ENCOURAGED TO TRY. PT REFUSING STANDING D/T PAIN. REFUSING BLADDER SCAN D/T PAIN. CONTINUING TO EDUCATE PT ON BLADDER SCAN IMPORTANT IF CANNOT VOID. PT C/O OF PAIN, MEDICATING PER EMAR. PT C/O OF N/V. MEDICATED W/ ZOFRAN PER EMAR. FLUIDS D/C PER MD ORDER. IN ROOM. MD WALTERFET IN ROOM W/ GOALS OF CARE CONVERSATION. CALL LIGHT IN REACH.
[2024-01-01] MEDS ORDERED: HYDROmorphone HCl/Pf 1MG SYR IV PRN (10:25)
[2024-01-01] MEDS ORDERED: LORazepam 1 MG Tab PO PRN (10:25)
--- NOTE | 2024-01-01 11:22 | NUR ---
update pt able to stand at side of bed, 2p assist w/ fww to use urinal to void. minimal output, pink colored. Pt now comfort care status, telemetry removed, DNR wristband applied.
--- NOTE | 2024-01-01 11:44 | NUR ---
"Spiritual Care | Pt. Request Pt. is awake in bed and welcomed this labor gang supervisor's visit. Pt. is pleasant. Spouse is at bedside. At the time of this labor gang supervisor was not aware that the Pt. had chosen [facility]fort [facility] prior to my visit. Facilitaed a life review and established some measure of rapport. Pt. displayed evidence of being very aware of his condition and displayed evidence of being realistic of his future outcome. Regarding matters of rosa, the Pt. verbalized that there be no prayer but also verbalized that he has been encouraged by my visit. Pt. and spouse verbalized gratitude and welcomed this labor gang supervisor to return."
[2024-01-01] MEDS ORDERED: Promethazine HCl 25 MG Supp PR PRN (11:50)
[2024-01-01] MEDS ORDERED: Morphine Sulfate 20 MG/1ML 1 ML Oral Syringe SL PRN (11:50)
[2024-01-01] MEDS ORDERED: Vancomycin HCL 1,000 MG in NS 250 ML IV SCH (16:00)
--- NOTE | 2024-01-01 17:36 | NUR ---
Pt and elected comfort care today, Fe very tearful, states they have been 20 years, and she states she struggles to imagnine life without him. The patient remains calm, friendly and continues to smile at staff members and thanking them for his care. Requested the windows vmware administrator visit 2 times today, and this does appear to calm pt's spouse. Roxanol ordered along with other comfort medications today.
--- NOTE | 2024-01-01 17:47 | NUR ---
SHIFT SUMMARY PT TRANSITIONED TO COMFORT CARE TODAY, SEE PREVIOUS NOTE. IN ROOM, TEARFUL BUT KIND AND APPRECIATIVE TO STAFF. COMFORT CART PLACED IN ROOM. PT C/O OF PAIN LLE, MEDICATED W/ ROXICODONE PER EMAR. PT HAS BEEN SLEEPING THIS AFTERNOON, NOT NEEDING ADDITIONAL MEDICATIONS. BREATHING EVEN AND UNLABORED ON 2L NC. PT REPOSITIONED Q2H, REFUSED LAST REPOSITIONING D/T PT SLEEPING PEACEFULLY. PT ABLE TO STAND AT BEDSIDE TO VOID X1 THIS SHIFT. BLADDER SCANNED THIS AFTERNOON W/ LESS THAN 300 IN BLADDER PRIOR TO VOID. PALLIATIVE CARE AND SPIRITUAL CARE IN ROOM MULTIPLE TIMES TO ENCOURAGE PT AND THIS SHIFT.
[2024-01-01] MEDS ORDERED: Magnesium Hydroxide Conc 10 ML UDC PO PRN (21:40)
[2024-01-01] MEDS ORDERED: Docusate Sodium 100 MG Cap PO SCH (22:00)
[2024-01-01] MEDS ORDERED: Sennosides 8.6 MG Tab PO SCH (22:00)
[2024-01-02] MEDS ORDERED: Ondansetron HCl 2 MG / ML 2ML Vial IV PRN (02:10)
--- NOTE | 2024-01-02 15:59 | NUR ---
SHIFT SUMMARY PT A&Ox4, MOMENTS OF CONFUSION, SOFT SPOKEN. AT BEDSIDE. PT WITH REQUIRED PAIN MEDICATION ONCE THIS SHIFT. NO EXCESSIVE SECRETIONS. NO S/S OF AIR HUNGER. PT RESTED PEACEFULLY AND VISITED WITH THROUGHOUT. VERY MINIMAL INTAKE/OUTPUT. [place] CATH IN PLACE FOR COMFORT AND D/T PT BEING A MAX ASSIST & PAINFUL w/ TRANSFERS. Q2 HOUR TURNS PROVIDED. NO OTHER EVENTS, PT TO TRANSFER TO [facility], WILL GIVE REPORT TO MEDICAL FLOOR RN.
--- NOTE | 2024-01-02 17:33 | NUR ---
PT TRANSFERRED TO ROOM AT 1720. A/O X3, ANSWERS APPROP. DENIES PAIN AT THIS TIME. ON C/C. AT BEDSIDE. BED IN LOW POSITIOIN, CALL LITE IN REACH, CALLS APPROP
[2024-01-02 19:18] VITALS: BP 99/67
--- NOTE | 2024-01-03 07:44 | NUR ---
AO3 AT BEDSIDE, VERY POLITE AND PLEASANT, COMFORT CARE, RESTING INTERMITTENTLY, PT REPORTS PAIN TO BLE, REPOSITIONED DENIED PAIN MEDICATIN, DENIED PAIN ANOTHER TIME WHEN ASSESED AND SAID WAS COMFORTABLE,, REPOSITIONED Q2 [place] DRAINING TO GRAVITY WITH SMALL AMOUNT RECORDED, EMESIS BAG AT BEDSIDE W NAUSEA, MEDICATED PER EMAR W SOME RELIEF, DID TRY SOME SMALL AMOUNT OF JELLO, ICE CHIPS CHICKEN BROTH SOUP. RESPIRATIONS WNL AT 16, SEEMS SOB W TALKING AT TIMES, IV ACCESS TO R ARM PATENT, FALL PRECAUTIONS MAINTAINED, CALL LIGHT WN REACH.
--- NOTE | 2024-01-03 10:35 | NUR ---
PT PLEASANT COOP A/O X3 QUIET. NOT SPEAKING MUCH. PAIN NOTED IN LEGS. MED PER EMAAR. AT BEDSIDE. BED IN LOW POSITION, CALL LITE IN REACH, CALLS APPROP
--- NOTE | 2024-01-03 11:39 | NUR ---
MED FOR PAIN. INCREASED TO 10 MG ROXANOL. PT TURNED. CLEAN AND DRY. CONTINUES AT BEDSIDE. WILL FOLLOW. BED IN LOW POSITION, CALL LITE IN REACH, CALLS APPRPO
--- NOTE | 2024-01-03 12:24 | NUR ---
STEPPED IN TO SEE PT. HE RESTING, EYES CLOSED. WOKE TO MY PRESENCE. STATES PAIN GOOD. WOULD LINE TO SLEEP FOR AWHILE. BED IN LOW POSITION, CALL LITE IN REACH, CALLS APPROP
--- NOTE | 2024-01-03 18:24 | NUR ---
PT PRESENTLY SLEEPING PER SPOUSE AT BEDSIDE. EYES ARE CLOSED, FULLY RELAXED. RESP EASY, UNLABORED. TRIED ROXANOL AT 5 MG, THEN 10 MG TWICE, PT STATED DID HELP FOR SHORT TIME. ALONG WITH THE OXYCODONE. STILL C/O PAIN. TRIED DILAUDID AT 1 MG. PT NOW QUITE COMFORTABLE. AGAIN STATES HES RESTING AND SLEEPING. NO OTHER CONCERNS NOTED. BED IN LOW POSITION, CALL LITE IN REACH, CALLS APPROP
--- NOTE | 2024-01-04 06:11 | NUR ---
SHIFT SUMMARY PT IS A&OX3. PT IS SOMNOLENT, BUT WAKES TO VOICE. AT BEDSIDE ATTENTIVE TO PT T/O NOC. PT DENIES PAIN. REPOSITIONED TOLERATED. ON A REGULAR DIET, POOR APPETITE, POOR PO INTAKE. [place] CATHETER DRAINING SMALL AMOUNTS OF YELLOW URINE TO GRAVITY. NO BM THIS SHIFT. BED IN LOWEST POSITION, CALL LIGHT WITHIN REACH.
--- NOTE | 2024-01-04 07:15 | NUR ---
Spiritual care visit conducted. Patient is alert and oreinted, and spouse is bedside. They request a Sales Representative Education Courses to perform the anointing of the sick. I confirm their wishes and inform them that I will reach out to the Worship [employer] and have a Sales Representative Education Courses come as soon as possible. I will cotninue to remain available to patient and family.
--- NOTE | 2024-01-04 10:55 | NUR ---
UNKNOWN LAST BM. THIS PC RN RECOMMENDS (PRUNE/APPLE/BUTTER MIXTURE) BEVERAGE TO ASSIST WITH GI MOTILITY OR MILK OF MAG.
--- NOTE | 2024-01-04 16:46 | NUR ---
SHIFT SUMMARY PT CONT COMFORT CARE. PT NOTED TO BE A&OX4 THIS SHIFT. PT VOICED C/O NAUSEA AND WAS MEDICATED PER EMAR WITH EFFECTIVENESS. PT NOTED TO REFUSE MEALS THIS SHIFT. PT HAS TAKEN IN SMALL AMOUNTS OF WATER THIS SHIFT. NOTED TO REMAIN AT BEDSIDE. CATH REMAINS PATENT WITH SMALL AMOUNT OF YELLOW OUTPUT.
--- NOTE | 2024-01-05 07:43 | NUR ---
SHIFT SUMMARY PT IS A&OX3. PT IS SOMNOLENT, BUT WAKES TO VOICE. AT BEDSIDE ATTENTIVE TO PT T/O NOC. PT C/O PAIN TO HIS BLE. MEDICATED PER EMAR WITH PRN 5 MG PO OXYCODONE. PT ALSO FEELING NAUSEATED, MEDICATED WITH PRN ZOFRAN. FEELING BETTER. REPOSITIONED TOLERATED. ON A REGULAR DIET, POOR APPETITE, POOR PO INTAKE. [place] CATHETER DRAINING SMALL AMOUNTS OF YELLOW URINE TO GRAVITY. NO BM THIS SHIFT. BED IN LOWEST POSITION, CALL LIGHT WITHIN REACH.
--- NOTE | 2024-01-05 11:02 | NUR ---
FOLLOWED UP WITH INTERVENTIONAL RADIOLOGY EDI CEE, WHO IS AWARE OF PLAN TO GET TUNNELED CATH DONE TODAY.
--- NOTE | 2024-01-05 14:54 | NUR ---
Spiritual Care Visit. Pt. is awake in bed and family members are present at bedside. Pt. displayed evidenc eof being encouraged by this life science teacher's visit. Considered matters of Pts. confort care and his goal to be going home on hospice. Spoude verbalized gratitude for the care the family has received. COnsidered matters of family and rosa. Family verbalized gratitude for [facility] spiritual care visit. Will remain available to family until discharge.
--- NOTE | 2024-01-05 19:11 | NUR ---
SHIFT SUMMARY PT COMFORT CARE. REMAINED AT BEDSIDE MAJORITY OF SHIFT. SON CAME BY TO VISIT WITH PT. REP FROM [facility] CAME BY TO SPEAK TO PT AND FAMILY. PT REPOSITIONED IN BED Q2. HEEL ELEVATED. NO BM THIS SHIFT. NAUSEA AND PRN ZOFRAN GIVEN ONCE
--- NOTE | 2024-01-06 07:26 | NUR ---
SHIFT SUMMARY PT IS A&OX3 PLEASANT AND APPRECIATIVE OF CARES. PT IS SOMNOLENT, BUT WAKES TO VOICE. AT BEDSIDE ATTENTIVE TO PT T/O NOC. PT C/O PAIN TO HIS BLE. MEDICATED PER EMAR WITH PRN 5 MG PO OXYCODONE AND 1MG IV DILAUDID. PT ALSO FEELING NAUSEATED AND DRY HEAVING, MEDICATED WITH PRN ZOFRAN. REPOSITIONED TOLERATED. ON A REGULAR DIET, POOR APPETITE, POOR PO INTAKE. [place] CATHETER DRAINING SMALL AMOUNTS OF YELLOW URINE TO GRAVITY. NO BM THIS SHIFT. BED IN LOWEST POSITION, CALL LIGHT WITHIN REACH.
[2024-01-06] MEDS ORDERED: ACET325 PO (07:46)
[2024-01-06] MEDS ORDERED: Ativan1 MG PO (07:47)
[2024-01-06] MEDS ORDERED: DOCU100 PO (07:47)
[2024-01-06] MEDS ORDERED: MORP20L SL (07:49)
[2024-01-06] MEDS ORDERED: OXYC5 PO (07:50)
[2024-01-06] MEDS ORDERED: PHENERGAN25 MG PR (07:51)
--- NOTE | 2024-01-06 11:42 | NUR ---
DISCHARGE NOTE. TRANSPORT PICKED UP AT 1140. IV'S ARE OUT. [place] REMAINED IN PLACE. POLST WITH PACKET AND SENT WITH TRANSPORT. DISCHARGE PACKET/EDUCATION SENT WITH FAMILY. HARD SCRIPTS IN PACKET WITH TRANSPORT. BELONGINGS GATHERED AND SENT WITH FAMILY.
== END 2024-01-06 11:47 | disposition hospice, home (50) | DRG 291 ==
LOC: ER 17:14 → PCU 17:15 → ERHOLD 17:15 → PCU 22:04 → MEDS 01-02 17:26
PROVIDERS: Nurse Practitioner Acute Care; Student in an Organized Health Care Education/Training Program; ADMIT Student in an Organized Health Care Education/Training Program
DX: I50.84 End stage heart failure (principal); R57.0 Cardiogenic shock; L03.116 Cellulitis of left lower limb; N17.9 Acute kidney failure, unspecified; E87.21 Acute metabolic acidosis; R64 Cachexia; R65.10 Systemic inflammatory response syndrome (SIRS) of non-infectious origin without acute organ dysfunction; I50.22 Chronic systolic (congestive) heart failure; Z66 Do not resuscitate; Z51.5 Encounter for palliative care; N18.32 Chronic kidney disease, stage 3b; Z68.21 Body mass index [BMI] 21.0-21.9, adult; I25.10 Atherosclerotic heart disease of native coronary artery without angina pectoris; Z86.73 Personal history of transient ischemic attack (TIA), and cerebral infarction without residual deficits; Z79.899 Other long term (current) drug therapy; E78.5 Hyperlipidemia, unspecified; I25.5 Ischemic cardiomyopathy; N40.0 Benign prostatic hyperplasia without lower urinary tract symptoms; I27.20 Pulmonary hypertension, unspecified; K72.90 Hepatic failure, unspecified without coma; E11.22 Type 2 diabetes mellitus with diabetic chronic kidney disease; Z79.82 Long term (current) use of aspirin; Z79.01 Long term (current) use of anticoagulants
CPT/HCPCS: 36415; 71045; 76705; 80053; 81001; 82248; 83605; 83735; 84100; 84145; 85025; 85610; 85730; 87040; 87086; 96365; 96366; 96367; 96375; 96376; 99285-25; A9270; G0378; J0690; J1171; J2405; J3370; J7030; J7050